=== PATIENT | female | born 1985 | race African-American/Black ===

== ENCOUNTER 2017-09-05 08:29 | Inpatient (IN) | payer MEDICAID ==
[2017-09-05] MEDS ORDERED: INSULIN REG, HUMAN 100 UNIT/ML 3 ML VIAL (PYX) IV ONE (08:46)
[2017-09-05] MEDS ORDERED: NORMAL SALINE 1000 ML 1,000 ML IV PRN ×2 (08:46→16:44)
--- NOTE | 2017-09-05 08:46 | ER Document Report ---
ED Blood Sugar Problem - General Mode of Arrival: Medic Information source: Relative, Emergency Med Personnel - HPI Onset: Yesterday Severity: Severe <ANTONINO LAMA - Last Filed: 09/05/17 08:59> <CHANO SANTOS - Last Filed: 09/05/17 17:00> - General Stated Complaint: BLOOD SUGAR CONCERNS Time Seen by Provider: 09/05/17 08:31 Notes: Patient is a 32-year-old type I diabetic who presents to the emergency department today with complaints of lethargy and elevated BGLs at home. Family at bedside states the patient began having these symptoms yesterday. EMS reports a BGL of 516 on arrival. Daughter at bedside states the patient has been vomiting with her symptoms. History is limited secondary to the patient's lethargy. (ANTONINO LAAM) - Related Data Allergies/Adverse Reactions: No Known Allergies Allergy (Unverified 09/05/17 08:58) Home Medications: Current Home Medications Acetaminophen [Tylenol] 650 mg PO PRN PRN 09/05/17 [History] Insulin Aspart [Novolog Insulin 100 Unit/1 ml 10 ml] 0 unit SUBCUT .SLD SCALE [History] Insulin Glargine,Hum.rec.anlog [Lantus] 5 unit SQ BID 09/05/17 [History] Metformin HCl 1,000 mg PO BID 09/05/17 [History] Pnv No.95/Ferrous Fum/Folic AC [ Formula Tablet] 1 tab PO DAILY [History] Past Medical History - General Information source: Relative Cannot obtain history due to: Other - lethargic - Social History Smoking Status: Unknown if Ever Smoked Frequency of alcohol use: None Drug Abuse: None Lives with: Family Family History: Reviewed & Not Pertinent Endocrine Medical History: Reports: Hx Diabetes Mellitus Type 1 Surgical Hx: Negative <ANTONINO LAMA - Last Filed: 09/05/17 08:59> Review of Systems - Review of Systems -: Yes ROS unobtainable due to patient's medical condition - very lethargic, given by family at bedside Constitutional: See HPI, Other - elevated BGL Gastrointestinal: See HPI, Vomiting <ANTONINO LAMA - Last Filed: 09/05/17 08:59> Physical Exam <ANTONINO LAMA - Last Filed: 09/05/17 08:59> <CHANO SANTOS - Last Filed: 09/05/17 17:00> - Vital signs Vitals: Resp BP Pulse Ox 22 H 155/102 H 100 09/05/17 08:34 09/05/17 08:34 09/05/17 08:34 - Notes Notes: Physical Exam: General: Lethargic, arouses to voice. HEENT: Normocephalic. Atraumatic. PERRL. Extraocular movements intact. Oropharynx clear. Neck: Supple. Non-tender. Respiratory: Kussmaul breathing. Cardiovascular: Tachycardic. Abdominal: Normal Inspection. Non-tender. No distension. Normal Bowel Sounds. Back: Non-tender. No deformity or step off. Extremities: Moves all four extremities. Upper extremities: Normal inspection. Normal ROM. Lower extremities: Normal inspection. No edema. Normal ROM. Neurological: Lethargic, arouses to voice. Psychological: Unable to assess Skin: Warm. Dry. Normal color. (ANTONINO LAMA) Course <ANTONINO LAMA - Last Filed: 09/05/17 08:59> - Laboratory Result Diagrams: 09/05/17 10:33 09/05/17 14:07 - Diagnostic Test Radiology reviewed: Image reviewed, Reports reviewed - X-ray and scans showed distended bladder with no other abnormality. There is a large amount of stool in the left colon. - EKG Interpretation by Pa EKG shows normal: Sinus rhythm, [place], Intervals, QRS Complexes. abnormal: ST-T Waves - Nonspecific lateral T wave abnormalities Rate: Tachycardia - 111 Rhythm: APC's [place]/QRS: Right axis deviation P Waves: LAURITA When compared to previous EKG there are: Previous EKG unavailable - Consults Dr. Soares Time consulted: 15:13 Consulted provider: other - Request do a CT scan to prove there is no perforation or other pathology and abdomen other than the constipation seen on KUB. If CT scan is okay, then he will admit the patient. <CHANO SANTOS - Last Filed: 09/05/17 17:00> - Re-evaluation Re-evalutation: 09/05/17 11:30 Patient has had 2 L of normal saline at this point, is on an insulin drip. She is now beginning to wake up and is able to give a more complete history. She reports she has been having lower abdominal pain with nausea and vomiting since about 3 PM yesterday. She reports her blood sugars were running high yesterday. She goes to [facility] for her medical care. 09/05/17 16:14 The patient urinated before she went to her imaging studies. The images show a quite distended bladder. Yu catheter will be placed to decompress her bladder. (CHANO SANTOS) - Vital Signs Vital signs: Temp Pulse Resp BP Pulse Ox 97.7 F 112 H 22 H 134/78 H 100 09/05/17 15:04 09/05/17 08:49 09/05/17 16:30 09/05/17 16:30 09/05/17 16:30 - Laboratory Laboratory results interpreted by me: 09/05/17 09/05/17 09/05/17 08:37 10:16 10:33 WBC 25.7 H RBC 5.74 H Hgb 17.0 H Hct 55.0 H MCHC 31.0 L RDW 14.8 H Band Neutrophils % 10 H Abs Neuts (Manual) 20.3 H Abs Monocytes (Manual) 1.8 H Sodium Potassium Chloride Carbon Dioxide Glucose POC Glucose 520 H* 502 H* Lactic Acid Urine Protein Urine Glucose (UA) Urine Ketones Urine Blood Ur Leukocyte Esterase 09/05/17 09/05/17 09/05/17 10:33 10:59 12:19 WBC RBC Hgb Hct MCHC RDW Band Neutrophils % Abs Neuts (Manual) Abs Monocytes (Manual) Sodium Potassium Chloride Carbon Dioxide Glucose POC Glucose 398 H Lactic Acid 5.9 H Urine Protein 100 H Urine Glucose (UA) >=500 H Urine Ketones 80 H Urine Blood SMALL H Ur Leukocyte Esterase TRACE H 09/05/17 09/05/17 09/05/17 14:07 14:07 14:25 WBC RBC Hgb Hct MCHC RDW Band Neutrophils % Abs Neuts (Manual) Abs Monocytes (Manual) Sodium 148.9 H Potassium 6.6 H* Chloride 114 H Carbon Dioxide < 5 L* Glucose 363 H POC Glucose 287 H Lactic Acid 3.7 H Urine Protein Urine Glucose (UA) Urine Ketones Urine Blood Ur Leukocyte Esterase 09/05/17 15:52 WBC RBC Hgb Hct MCHC RDW Band Neutrophils % Abs Neuts (Manual) Abs Monocytes (Manual) Sodium Potassium Chloride Carbon Dioxide Glucose POC Glucose 284 H Lactic Acid Urine Protein Urine Glucose (UA) Urine Ketones Urine Blood Ur Leukocyte Esterase Critical Care Note - Critical Care Note Total time excluding time spent on procedures (mins): 45 <CHANO SANTOS - Last Filed: 09/05/17 17:00> Discharge <ANTONINO LAMA - Last Filed: 09/05/17 08:59> - Discharge Admitting Provider: Hospitalist Unit Admitted: I[facility]U <CHANO SANTOS - Last Filed: 09/05/17 17:00> - Discharge Clinical Impression: Dehydration Diabetic ketoacidosis associated with type 1 diabetes mellitus Qualifiers: Diabetes mellitus complication detail: with coma Qualified Code(s): E10.11 - Type 1 diabetes mellitus with ketoacidosis with coma Abdominal pain Qualifiers: Abdominal location: lower abdomen, unspecified Qualified Code(s): R10.30 - Lower abdominal pain, unspecified Constipation Qualifiers: Constipation type: unspecified constipation type Qualified Code(s): K59.00 - Constipation, unspecified Condition: Fair Disposition: ADMITTED INPATIENT Scribe Attestation: 09/05/17 10:09 I personally performed the services described in the documentation, reviewed and edited the documentation which was dictated to the scribe in my presence, and it accurately records my words and actions. (CHANO SANTOS) Scribe Documentation - Scribe Written by Scribe:: Sandrita Tolentino, 09/05/2017 [id number] acting as scribe for :: [place] <ANTONINO LAMA - Last Filed: 09/05/17 08:59>
[2017-09-05 11:13] LABS: MEAN CORPUSCULAR HEMOGLOBIN 29.7 pg (27.0-33.4); MEAN CORPUSCULAR VOLUME 96 fl (80-97); RED BLOOD COUNT 5.74 10^6/uL (3.72-5.28); RED CELL DISTRIBUTION WIDTH 14.8 % (11.5-14.0); WHITE BLOOD COUNT 25.7 10^3/uL (4.0-10.5)
[2017-09-05 11:13] LABS: APPEARANCE,URINE SLIGHTLY-CLOUDY; BILIRUBIN,URINE NEGATIVE (NEGATIVE); GLUCOSE, URINE >=500 mg/dL (NEGATIVE); KETONES,URINE 80 mg/dL (NEGATIVE); LEUKOCYTE ESTERASE,URINE TRACE (NEGATIVE); NITRITE,URINE NEGATIVE (NEGATIVE); PROTEIN,URINE 100 mg/dL (NEGATIVE); URINE SPECIFIC GRAVITY 1.023; UROBILINOGEN,URINE NEGATIVE mg/dL (<2.0)
--- NOTE | 2017-09-05 11:18 | EKG REPORT ---
SEVERITY:- ABNORMAL ECG - SINUS TACHYCARDIA ATRIAL PREMATURE COMPLEX RIGHT ATRIAL ABNORMALITY BORDERLINE RIGHT AXIS DEVIATION NONSPECIFIC T ABNORMALITIES, LATERAL LEADS : Confirmed by: Tania Pierre MD 05-Sep-2017 11:17:36
[2017-09-05 11:35] LABS: BAND NEUTROPHILS % (MANUAL) 10 % (3-5); BASOPHILS % (MANUAL) 0 % (0-2); EOSINOPHILS % (MANUAL) 0 % (0-6); LYMPHOCYTES % (MANUAL) 13 % (13-45); TOTAL CELLS COUNTED 100
[2017-09-05 11:36] LABS: PLATELET CLUMPS PRESENT
[2017-09-05 11:37] LABS: ANISOCYTOSIS SLIGHT; BURR CELLS SLIGHT; POIKILOCYTOSIS 1+
[2017-09-05 11:38] LABS: POLYCHROMASIA SLIGHT; TEAR DROP CELLS SLIGHT; TOXIC VACUOLATION PRESENT
[2017-09-05] MEDS ORDERED: NORMAL SALINE 1000 ML 1,000 ML IV ONE (13:16)
[2017-09-05 14:36] LABS: ALANINE AMINOTRANSFERASE 19 U/L (9-52); ALBUMIN 4.6 g/dL (3.5-5.0); ALKALINE PHOSPHATASE 94 U/L (38-126); ASPARTATE AMINO TRANSFERASE 23 U/L (14-36); BILIRUBIN,DIRECT 0.4 mg/dL (0.0-0.4); BILIRUBIN,TOTAL 0.4 mg/dL (0.2-1.3); BLOOD UREA NITROGEN 15 mg/dL (7-20); CALCIUM 8.8 mg/dL (8.4-10.2); CHLORIDE 114 mmol/L (98-107); CREATININE RESULT 0.83 mg/dL (0.52-1.25); GLUCOSE 363 mg/dL (75-110); MAGNESIUM 2.1 mg/dL (1.6-2.3); SODIUM 148.9 mmol/L (137-145); TOTAL PROTEIN 7.6 g/dL (6.3-8.2)
[2017-09-05 15:00] LABS: CARBON DIOXIDE < 5 mmol/L (22-30); POTASSIUM 6.6 mmol/L (3.6-5.0)
[2017-09-05] MEDS ORDERED: SODIUM BICARBONATE 8.4% INJ 50 MEQ/50 ML DISP.SYRIN IV ONE (15:06)
--- NOTE | 2017-09-05 15:35 | RADIOLOGY REPORT (SQ) ---
EXAM DESCRIPTION: KUB/ABDOMEN (SINGLE VIEW) COMPLETED DATE/TIME: 09/05/2017 3:08 pm REASON FOR STUDY: lower abd pain, DKA COMPARISON: None. NUMBER OF VIEWS: One view. TECHNIQUE: Supine radiographic image of the abdomen acquired. LIMITATIONS: None. FINDINGS: BOWEL GAS PATTERN: Normal bowel gas pattern. No dilated loops. CALCIFICATIONS: No suspicious calcifications. SOFT TISSUES: The liver is prominent in size. HARDWARE: An IUD is present. BONES: No acute fracture. No worrisome bone lesions. OTHER: No other significant finding. IMPRESSION: Prominent liver. Nonspecific abdomen generally. TECHNICAL DOCUMENTATION: JOB ID: [id number] [employer]- All Rights Reserved
--- NOTE | 2017-09-05 15:57 | RADIOLOGY REPORT (SQ) ---
EXAM DESCRIPTION: CT ABD/PELVIS NO ORAL OR IV COMPLETED DATE/TIME: 09/05/2017 3:33 pm REASON FOR STUDY: Lower abdominal pain, fecal impaction, DKA COMPARISON: None. TECHNIQUE: CT scan of the abdomen and pelvis performed without intravenous or oral contrast. Images reviewed with lung, soft tissue, and bone windows. Reconstructed coronal and sagittal MPR images revi ewed. All images stored on PACS. All CT scanners at this facility use dose modulation, iterative reconstruction, and/or weight based d osing when appropriate to reduce radiation dose to as low as reasonably achievable (ALARA). [facility]: Dose Right [facility]: CareDose [facility]: Dose Right [facility]: Teradose 4D [facility]: Smart Dinetouch RADIATION DOSE: Up-to-date CT equipment and radiation dose reduction techniques were employed. CTDIv ol: 5.3 mGy. DLP: 271 mGy-cm.mGy. LIMITATIONS: Absence of oral and intravenous contrast and paucity of intra-abdominal fat limit evalu ation of bowel. FINDINGS: LOWER CHEST: No significant findings. No nodules or infiltrates. NON-CONTRASTED LIVER, SPLEEN, ADRENALS: Evaluation limited by lack of IV contrast. No identified sign ificant masses. PANCREAS: No masses. No peripancreatic inflammatory changes. GALLBLADDER: No identified stones by CT criteria. No inflammatory changes to suggest cholecystitis. RIGHT KIDNEY AND URETER: No suspicious masses. Assessment limited by lack of IV contrast. No signif icant calcifications. No hydronephrosis or hydroureter. LEFT KIDNEY AND URETER: No suspicious masses. Assessment limited by lack of IV contrast. No signifi cant calcifications. No hydronephrosis or hydroureter. AORTA AND RETROPERITONEUM: No aneurysm. No retroperitoneal masses or adenopathy. BOWEL AND PERITONEAL CAVITY: A large amount of fluid is present in the stomach. No obvious masses or inflammatory changes. There is not appear to be significant retained stool. No free fluid. APPENDIX: Normal. PELVIS, BLADDER, AND ABDOMINAL WALL:The urinary bladder is distended. There is an IUD within the [place]. There is no adnexal mass or fluid collection. There is no significant free fluid. BONES: No significant findings. OTHER: No other significant finding. IMPRESSION: NO SIGNIFICANT OR ACUTE PROCESS IN THE ABDOMEN OR PELVIS. COMMENT: Quality ID # [id number]: Final reports with documentation of one or more dose reduction techniques (e.g., Automated exposure control, adjustment of the mA and/or kV according to patient size, use of iterative reconstruction technique) TECHNICAL DOCUMENTATION: JOB ID: [id number] [employer]- All Rights Reserved
[2017-09-05] MEDS ORDERED: ONDANSETRON 4 MG TAB.RAPDIS PO PRN (16:36)
[2017-09-05] MEDS ORDERED: GLUCAGON,HUMAN RECOMB 1 MG INJ IM PRN (16:44)
[2017-09-05] MEDS ORDERED: DEXTROSE 50%-WATER 25 GM/50 ML DISP.SYRIN IV PRN ×2 (16:44)
[2017-09-05] MEDS ORDERED: DEXTROSE 40% GEL 15 GM TUBE PO PRN ×2 (16:44)
[2017-09-05 17:11] LABS: VENOUS BLOOD BASE EXCESS -24.2 mmol/L; VENOUS BLOOD HCO3 6.7 mmol/L (20-32); VENOUS BLOOD PCO2 29.6 mmHg (35-63)
[2017-09-05 17:14] LABS: VENOUS BLOOD PH 6.97 (7.30-7.42)
--- NOTE | 2017-09-05 17:14 | PDOC H&P ---
History of Present Illness Admission Date/PCP: 09/05/2017 Patient complains of: Weakness and not feeling well. History of Present Illness: SCOTT LEIVA is a 32 year old female presents to the emergency room with complaint of not feeling well for the last few days. Patient noticed that she had been going to the restroom more frequently and drinking a lot of fluid. Patient states her blood sugars have been high but she contributed that to what she has been eating. Patient states her children have been sick at home and typically when her children are sick that is when she has problems with controlling her blood sugars. Patient states that she also has been under a lot of stress which tends to cause her blood sugars to run higher. Received call from the emergency room department describing patient's medical condition was reported that patient was in DKA and that insulin and IV fluids have been administered and also was informed of patient's CT of abdomen demonstrating large amount of stool with free fluid. Patient reports that she was told that she was diabetic after having her third child. Patient reports that endocrinology had a hard time determining if she was type I or type II however she states that finally a decision was made that she was type I. Past Medical History Endocrine Medical History: Reports: Diabetes Mellitus Type 1 Social History Lives with: Family Smoking Status: Unknown if Ever Smoked Family History Family History: Reviewed & Not Pertinent Parental Family History Reviewed: Yes Children Family History Reviewed: Yes Sibling(s) Family History Reviewed.: Yes Medication/Allergy Home Medications: Acetaminophen [Tylenol] 650 mg PO PRN PRN 09/05/17 Insulin Aspart [Novolog Insulin 100 Unit/1 ml 10 ml] 0 unit SUBCUT .SLD SCALE Insulin Glargine,Hum.rec.anlog [Lantus] 5 unit SQ BID 09/05/17 Metformin HCl 1,000 mg PO BID 09/05/17 Pnv No.95/Ferrous Fum/Folic AC [ Formula Tablet] 1 tab PO DAILY Allergies/Adverse Reactions: No Known Allergies Allergy (Unverified 09/05/17 08:58) Review of Systems Constitutional: PRESENT: weakness Eyes: ABSENT: visual disturbances Ears: ABSENT: hearing changes Cardiovascular: ABSENT: chest pain, dyspnea on exertion, edema, orthropnea, palpitations Respiratory: ABSENT: cough, hemoptysis Gastrointestinal: PRESENT: constipation Genitourinary: ABSENT: dysuria, hematuria Musculoskeletal: ABSENT: joint swelling Integumentary: ABSENT: rash, wounds Neurological: ABSENT: abnormal gait, abnormal speech, confusion, dizziness, focal weakness, syncope Psychiatric: ABSENT: anxiety, depression, homidical ideation, suicidal ideation Endocrine: PRESENT: polydipsia, polyuria Hematologic/Lymphatic: ABSENT: easy bleeding, easy bruising Physical Exam Vital Signs: Temp Pulse Resp BP Pulse Ox 97.7 F 112 H 22 H 134/78 H 100 09/05/17 15:04 09/05/17 08:49 09/05/17 16:30 09/05/17 16:30 09/05/17 16:30 Intake & Output 09/04/17 09/05/17 09/06/17 06:59 06:59 06:59 Weight 49.895 kg General appearance: PRESENT: no acute distress, thin Head exam: PRESENT: atraumatic, normocephalic Eye exam: PRESENT: conjunctiva pink, EOMI. ABSENT: scleral icterus Ear exam: PRESENT: normal external ear exam Mouth exam: PRESENT: moist, tongue midline Neck exam: ABSENT: carotid bruit, JVD, lymphadenopathy, thyromegaly Respiratory exam: PRESENT: clear to auscultation dannie. ABSENT: rales, rhonchi, wheezes Cardiovascular exam: PRESENT: RRR, tachycardia. ABSENT: diastolic murmur, rubs , systolic murmur Pulses: PRESENT: normal dorsalis pedis pul Vascular exam: PRESENT: normal capillary refill GI/Abdominal exam: PRESENT: normal bowel sounds, soft, tenderness. ABSENT: distended, guarding, mass, organolmegaly, rebound Rectal exam: PRESENT: deferred Extremities exam: PRESENT: full ROM. ABSENT: calf tenderness, clubbing, pedal edema Neurological exam: PRESENT: alert, awake, oriented to person, oriented to place , oriented to time, oriented to situation, CN II-XII grossly intact. ABSENT: motor sensory deficit Psychiatric exam: PRESENT: appropriate affect, normal mood. ABSENT: homicidal ideation, suicidal ideation Skin exam: PRESENT: dry, intact, warm. ABSENT: cyanosis, rash Results Laboratory Results: 09/05/17 10:33 09/05/17 14:07 09/05/17 09/05/17 09/05/17 10:33 10:33 10:33 WBC 25.7 H RBC 5.74 H Hgb 17.0 H Hct 55.0 H MCV 96 MCH 29.7 MCHC 31.0 L RDW 14.8 H Plt Count 304 Seg Neutrophils % Not Reportable Lymphocytes % Not Reportable Monocytes % Not Reportable Eosinophils % Not Reportable Basophils % Not Reportable Absolute Neutrophils Not Reportable Absolute Lymphocytes Not Reportable Absolute Monocytes Not Reportable Absolute Eosinophils Not Reportable Absolute Basophils Not Reportable VBG pH VBG pCO2 VBG HCO3 VBG Base Excess Sodium Cancelled Potassium Cancelled Chloride Cancelled Carbon Dioxide Cancelled Anion Gap Cancelled BUN Cancelled Creatinine Cancelled Est GFR ( Amer) Cancelled Est GFR (Non-Af Amer) Cancelled Glucose Cancelled Lactic Acid 5.9 H Calcium Cancelled Magnesium Cancelled Total Bilirubin Cancelled AST Cancelled ALT Cancelled Alkaline Phosphatase Cancelled Total Protein Cancelled Albumin Cancelled Urine Color Urine Appearance Urine pH Ur Specific [place] Urine Protein Urine Glucose (UA) Urine Ketones Urine Blood Urine Nitrite Ur Leukocyte Esterase Urine WBC (Auto) Urine RBC (Auto) 09/05/17 09/05/17 09/05/17 10:59 11:33 14:05 WBC RBC Hgb Hct MCV MCH MCHC RDW Plt Count Seg Neutrophils % Lymphocytes % Monocytes % Eosinophils % Basophils % Absolute Neutrophils Absolute Lymphocytes Absolute Monocytes Absolute Eosinophils Absolute Basophils VBG pH Cancelled VBG pCO2 Cancelled VBG HCO3 Cancelled VBG Base Excess Cancelled Sodium Cancelled Potassium Cancelled Chloride Cancelled Carbon Dioxide Cancelled Anion Gap Cancelled BUN Cancelled Creatinine Cancelled Est GFR ( Amer) Cancelled Est GFR (Non-Af Amer) Cancelled Glucose Cancelled Lactic Acid Calcium Cancelled Magnesium Cancelled Total Bilirubin Cancelled AST Cancelled ALT Cancelled Alkaline Phosphatase Cancelled Total Protein Cancelled Albumin Cancelled Urine Color STRAW Urine Appearance SLIGHTLY-CLOUDY Urine pH 5.0 Ur Specific [place] 1.023 Urine Protein 100 H Urine Glucose (UA) >=500 H Urine Ketones 80 H Urine Blood SMALL H Urine Nitrite NEGATIVE Ur Leukocyte Esterase TRACE H Urine WBC (Auto) 3 Urine RBC (Auto) 2 09/05/17 09/05/17 14:07 14:07 WBC RBC Hgb Hct MCV MCH MCHC RDW Plt Count Seg Neutrophils % Lymphocytes % Monocytes % Eosinophils % Basophils % Absolute Neutrophils Absolute Lymphocytes Absolute Monocytes Absolute Eosinophils Absolute Basophils VBG pH VBG pCO2 VBG HCO3 VBG Base Excess Sodium 148.9 H Potassium 6.6 H* Chloride 114 H Carbon Dioxide < 5 L* Anion Gap Not Reportable BUN 15 Creatinine 0.83 Est GFR ( Amer) > 60 Est GFR (Non-Af Amer) > 60 Glucose 363 H Lactic Acid 3.7 H Calcium 8.8 Magnesium 2.1 Total Bilirubin 0.4 AST 23 ALT 19 Alkaline Phosphatase 94 Total Protein 7.6 Albumin 4.6 Urine Color Urine Appearance Urine pH Ur Specific [place] Urine Protein Urine Glucose (UA) Urine Ketones Urine Blood Urine Nitrite Ur Leukocyte Esterase Urine WBC (Auto) Urine RBC (Auto) Impressions: KUB X-Ray 09/05/17 14:35 IMPRESSION: Prominent liver. Nonspecific abdomen generally. Abdomen/Pelvis CT 09/05/17 15:15 IMPRESSION: NO SIGNIFICANT OR ACUTE PROCESS IN THE ABDOMEN OR PELVIS. Assessment & Plan - Diagnosis (1) Diabetic ketoacidosis associated with type 1 diabetes mellitus Qualifiers: Diabetes mellitus complication detail: with coma Qualified Code(s): E10.11 - Type 1 diabetes mellitus with ketoacidosis with coma Is this a current diagnosis for this admission?: Yes Plan: Will continue IVF, Insulin, and scheduled labs. Once Blood glucose 250 will switch to D51/2 saline. HBGA1C pending. Will check Blood and Urine Culture. (2) Metabolic acidosis Is this a current diagnosis for this admission?: Yes Plan: Secondary to DKA: Will continue current treatment. (3) Hypernatremia Plan: Secondary to Dehydration: Will continue IVFs. (4) Abdominal pain Qualifiers: Abdominal location: lower abdomen, unspecified Qualified Code(s): R10.30 - Lower abdominal pain, unspecified Plan: Secondary to Constipation: Will write for Soap Ken enema. Will load from the bottom first before loading from the top. (5) Dehydration Is this a current diagnosis for this admission?: Yes Plan: Will continue IVFs. (6) Constipation Qualifiers: Constipation type: unspecified constipation type Qualified Code(s): K59.00 - Constipation, unspecified Is this a current diagnosis for this admission?: Yes Plan: Will load from the bottom first. Pt with large amounts of stool. (7) Leukocytosis Is this a current diagnosis for this admission?: Yes Plan: Blood and Urine Culture pending. (8) Hyperkalemia Is this a current diagnosis for this admission?: Yes Plan: Secondary to Acidosis: Will continue to check BMPs. (9) DVT prophylaxis Is this a current diagnosis for this admission?: Yes Plan: SCDs - Time Time Spent: 30 to 50 Minutes Anticipated discharge: Home
[2017-09-05] MEDS ORDERED: DEXTROSE 5%-1/2 NORMAL SALINE 1,000 ML IV PRN ×2 (17:29→20:02)
[2017-09-05 18:05] LABS: BLOOD UREA NITROGEN 13 mg/dL (7-20); CALCIUM 8.8 mg/dL (8.4-10.2); CHLORIDE 116 mmol/L (98-107); GLUCOSE 289 mg/dL (75-110)
[2017-09-05 18:05] LABS: ARTERIAL BLOOD BASE EXCESS -23.6 mmol/L; ARTERIAL BLOOD O2 SATURATION 97.9 % (94-98)
[2017-09-05 18:30] LABS: CARBON DIOXIDE < 5 mmol/L (22-30); POTASSIUM 6.6 mmol/L (3.6-5.0)
[2017-09-05] MEDS ORDERED: ONDANSETRON HCL INJ/PF 4 MG/2 ML SDV ONE (18:47)
[2017-09-05] MEDS: NORMAL SALINE 100 ML with INSULIN REGULAR, HUMAN 100 UNIT IV PRN ×2 (18:53)
[2017-09-05] MEDS ORDERED: 1/2 NORMAL SALINE 2,000 ML IV ONE (20:05)
[2017-09-05 20:15] LABS: ARTERIAL BLOOD BASE EXCESS -21.6 mmol/L; ARTERIAL BLOOD O2 SATURATION 97.3 % (94-98)
[2017-09-05 20:53] LABS: BLOOD UREA NITROGEN 12 mg/dL (7-20); CALCIUM 9.2 mg/dL (8.4-10.2); CHLORIDE 114 mmol/L (98-107); CREATININE RESULT 0.66 mg/dL (0.52-1.25); GLUCOSE 310 mg/dL (75-110); POTASSIUM 5.9 mmol/L (3.6-5.0); SODIUM 142.7 mmol/L (137-145)
[2017-09-05 21:09] LABS: CARBON DIOXIDE < 5 mmol/L (22-30)
[2017-09-05 22:24] LABS: APPEARANCE,URINE CLEAR; BILIRUBIN,URINE NEGATIVE (NEGATIVE); GLUCOSE, URINE >=500 mg/dL (NEGATIVE); KETONES,URINE 80 mg/dL (NEGATIVE); LEUKOCYTE ESTERASE,URINE NEGATIVE (NEGATIVE); NITRITE,URINE NEGATIVE (NEGATIVE); PROTEIN,URINE NEGATIVE (NEGATIVE); URINE SPECIFIC GRAVITY 1.014; UROBILINOGEN,URINE NEGATIVE mg/dL (<2.0)
[2017-09-06] MEDS: POTASSI CL 20 MEQ/50 ML RIDER 20 MEQ/50 ML RTUPB IV SCH ×2 (02:00→05:40)
[2017-09-06 02:22] LABS: ANION GAP 10 (5-19); BLOOD UREA NITROGEN 6 mg/dL (7-20); CARBON DIOXIDE 12 mmol/L (22-30); CHLORIDE 114 mmol/L (98-107); GLUCOSE 293 mg/dL (75-110); SODIUM 136.1 mmol/L (137-145)
[2017-09-06 02:32] LABS: POTASSIUM 3.4 mmol/L (3.6-5.0)
[2017-09-06] MEDS ORDERED: POTASSI CL 20 MEQ/50 ML RIDER 20 MEQ/50 ML RTUPB IV ONE ×2 (02:53→04:50)
[2017-09-06 06:18] LABS: ABSOLUTE BASOPHILS # (AUTO) 0.1 10^3/uL (0.0-0.2); ABSOLUTE LYMPHOCYTES (AUTO) 1.6 10^3/uL (0.5-4.7); ABSOLUTE MONOCYTES (AUTO) 1.1 10^3/uL (0.1-1.4); ABSOLUTE NEUT (AUTO) 9.7 10^3/uL (1.7-8.2); BASOPHILS % (AUTO) 0.5 % (0-2); EOSINOPHILS % (AUTO) 0.1 % (0-6); HEMATOCRIT 36.4 % (36.0-47.0); HGB HCT DIFFERENCE 0.2; LYMPHOCYTES % (AUTO) 12.8 % (13-45); MEAN CORPUSCULAR HEMOGLOBIN 29.4 pg (27.0-33.4); MEAN CORPUSCULAR HGB CONC 33.5 g/dL (32.0-36.0); MONOCYTES % (AUTO) 8.5 % (3-13); RED BLOOD COUNT 4.14 10^6/uL (3.72-5.28); RED CELL DISTRIBUTION WIDTH 13.6 % (11.5-14.0); SEGMENTED NEUTROPHILS % (AUTO) 78.1 % (42-78); WHITE BLOOD COUNT 12.5 10^3/uL (4.0-10.5)
[2017-09-06 06:27] LABS: ANION GAP 7 (5-19); BLOOD UREA NITROGEN 5 mg/dL (7-20); CALCIUM 7.9 mg/dL (8.4-10.2); CARBON DIOXIDE 13 mmol/L (22-30); CHLORIDE 118 mmol/L (98-107); CHOLESTEROL 173.56 mg/dL (0-200); CREATININE RESULT 0.46 mg/dL (0.52-1.25); Direct HDL 57 mg/dL (>40); GLUCOSE 175 mg/dL (75-110); MAGNESIUM 1.6 mg/dL (1.6-2.3); PHOSPHORUS 0.9 mg/dL (2.5-4.5); POTASSIUM 3.4 mmol/L (3.6-5.0); SODIUM 138.4 mmol/L (137-145); TRIGLYCERIDES 91 mg/dL (<150)
[2017-09-06 06:36] LABS: HEMOGLOBIN 12.2 g/dL (12.0-15.5); MEAN CORPUSCULAR VOLUME 88 fl (80-97)
[2017-09-06 06:38] LABS: DIRECT LDL 97 mg/dL (<100)
[2017-09-06 07:15] LABS: THYROID STIMULATING HORMONE 3.52 uIU/mL (0.47-4.68)
[2017-09-06] MEDS ORDERED: POTASSIUM CHLORIDE 10 MEQ TABLET.SA PO ONE ×2 (07:34→16:00)
[2017-09-06] MEDS ORDERED: POTASSIUM PHOS,M-BASIC-D-BASIC 60 MMOL in NORMAL SALINE 1000 ML 1,000 ML IV ONE (10:00)
[2017-09-06] MEDS: PANTOPRAZOLE SODIUM 40 MG VIAL IV SCH (10:41)
[2017-09-06] MEDS: MAGNESIUM SULFATE/D5W 1 GM/100 ML RTUPB IV SCH ×2 (10:41→11:35)
[2017-09-06] MEDS: DEXTROSE 5%-NORMAL SALINE 1,000 ML IV PRN ×2 (10:49→14:47)
[2017-09-06 11:06] LABS: ANION GAP 8 (5-19); BLOOD UREA NITROGEN 4 mg/dL (7-20); CALCIUM 7.8 mg/dL (8.4-10.2); CARBON DIOXIDE 14 mmol/L (22-30); CHLORIDE 120 mmol/L (98-107); CREATININE RESULT 0.38 mg/dL (0.52-1.25); GLUCOSE 105 mg/dL (75-110); POTASSIUM 3.3 mmol/L (3.6-5.0); SODIUM 142.4 mmol/L (137-145)
[2017-09-06 11:10] LABS: APPEARANCE,URINE SLIGHTLY-CLOUDY; BILIRUBIN,URINE NEGATIVE (NEGATIVE); GLUCOSE, URINE NEGATIVE (NEGATIVE); KETONES,URINE TRACE mg/dL (NEGATIVE); LEUKOCYTE ESTERASE,URINE NEGATIVE (NEGATIVE); NITRITE,URINE NEGATIVE (NEGATIVE); PROTEIN,URINE 30 mg/dL (NEGATIVE); URINE SPECIFIC GRAVITY 1.011; UROBILINOGEN,URINE NEGATIVE mg/dL (<2.0)
[2017-09-06] MEDS: NORMAL SALINE 100 ML with INSULIN REGULAR, HUMAN 100 UNIT IV PRN ×2 (11:35)
--- NOTE | 2017-09-06 13:35 | PDOC PROGRESS REPORT ---
Subjective Progress Note for:: 09/06/17 Subjective:: Pt states that she is feeling better. Pt states that she had a bowel movement yesterday. Physical Exam Vital Signs: Temp Pulse Resp BP Pulse Ox 98.8 F 95 18 106/53 L 100 09/06/17 08:09 09/06/17 08:09 09/06/17 08:09 09/06/17 08:09 09/06/17 08:09 Intake & Output 09/05/17 09/06/17 09/07/17 06:59 06:59 06:59 Intake Total 3490 Output Total 2500 Balance 990 General appearance: PRESENT: no acute distress, thin Head exam: PRESENT: atraumatic, normocephalic Eye exam: PRESENT: conjunctiva pink, EOMI. ABSENT: scleral icterus Ear exam: PRESENT: normal external ear exam Mouth exam: PRESENT: moist, tongue midline Neck exam: ABSENT: carotid bruit, JVD, lymphadenopathy, thyromegaly Respiratory exam: PRESENT: clear to auscultation dannie. ABSENT: rales, rhonchi, wheezes Cardiovascular exam: PRESENT: RRR. ABSENT: diastolic murmur, rubs, systolic murmur Pulses: PRESENT: normal dorsalis pedis pul Vascular exam: PRESENT: normal capillary refill GI/Abdominal exam: PRESENT: normal bowel sounds, soft. ABSENT: distended, guarding, mass, organolmegaly, rebound, tenderness Rectal exam: PRESENT: deferred Extremities exam: PRESENT: full ROM. ABSENT: calf tenderness, clubbing, pedal edema Neurological exam: PRESENT: alert, awake, oriented to person, oriented to place , oriented to time, oriented to situation, CN II-XII grossly intact. ABSENT: motor sensory deficit Psychiatric exam: PRESENT: appropriate affect, normal mood. ABSENT: homicidal ideation, suicidal ideation Skin exam: PRESENT: dry, intact, warm. ABSENT: cyanosis, rash Results Laboratory Results: 09/06/17 05:55 09/06/17 10:17 09/05/17 09/05/17 09/05/17 17:00 17:42 17:55 WBC RBC Hgb Hct MCV MCH MCHC RDW Plt Count Seg Neutrophils % Lymphocytes % Monocytes % Eosinophils % Basophils % Absolute Neutrophils Absolute Lymphocytes Absolute Monocytes Absolute Eosinophils Absolute Basophils Carbonic Acid 0.39 L HCO3/H2CO3 Ratio 10:1 ABG pH 7.09 L* ABG pCO2 13.0 L* ABG pO2 139.5 H ABG HCO3 3.9 L ABG O2 Saturation 97.9 ABG Base Excess -23.6 VBG pH 6.97 L* VBG pCO2 29.6 L VBG HCO3 6.7 L VBG Base Excess -24.2 FiO2 ROOM AIR Sodium 147.0 H Potassium 6.6 H* Chloride 116 H Carbon Dioxide < 5 L* Anion Gap Not Reportable BUN 13 Creatinine 0.70 Est GFR ( Amer) > 60 Est GFR (Non-Af Amer) > 60 Glucose 289 H Calcium 8.8 Phosphorus Magnesium Triglycerides Cholesterol LDL Cholesterol Direct VLDL Cholesterol HDL Cholesterol TSH Free T4 Urine Color Urine Appearance Urine pH Ur Specific [place] Urine Protein Urine Glucose (UA) Urine Ketones Urine Blood Urine Nitrite Ur Leukocyte Esterase Urine WBC (Auto) Urine RBC (Auto) 09/05/17 09/05/17 09/05/17 20:06 20:20 21:55 WBC RBC Hgb Hct MCV MCH MCHC RDW Plt Count Seg Neutrophils % Lymphocytes % Monocytes % Eosinophils % Basophils % Absolute Neutrophils Absolute Lymphocytes Absolute Monocytes Absolute Eosinophils Absolute Basophils Carbonic Acid 0.46 L HCO3/H2CO3 Ratio 11:1 ABG pH 7.14 L* ABG pCO2 15.4 L* ABG pO2 118.9 H ABG HCO3 5.1 L ABG O2 Saturation 97.3 ABG Base Excess -21.6 VBG pH VBG pCO2 VBG HCO3 VBG Base Excess FiO2 21% Sodium 142.7 Potassium 5.9 H Chloride 114 H Carbon Dioxide < 5 L* Anion Gap Not Reportable BUN 12 Creatinine 0.66 Est GFR ( Amer) > 60 Est GFR (Non-Af Amer) > 60 Glucose 310 H Calcium 9.2 Phosphorus Magnesium Triglycerides Cholesterol LDL Cholesterol Direct VLDL Cholesterol HDL Cholesterol TSH Free T4 Urine Color STRAW Urine Appearance CLEAR Urine pH 5.0 Ur Specific [place] 1.014 Urine Protein NEGATIVE Urine Glucose (UA) >=500 H Urine Ketones 80 H Urine Blood SMALL H Urine Nitrite NEGATIVE Ur Leukocyte Esterase NEGATIVE Urine WBC (Auto) 0 Urine RBC (Auto) 0 09/06/17 09/06/17 09/06/17 00:53 02:04 05:55 WBC 12.5 H RBC 4.14 Hgb 12.2 D Hct 36.4 MCV 88 D MCH 29.4 MCHC 33.5 RDW 13.6 Plt Count 185 Seg Neutrophils % 78.1 H Lymphocytes % 12.8 L Monocytes % 8.5 Eosinophils % 0.1 Basophils % 0.5 Absolute Neutrophils 9.7 H Absolute Lymphocytes 1.6 Absolute Monocytes 1.1 Absolute Eosinophils 0.0 Absolute Basophils 0.1 Carbonic Acid HCO3/H2CO3 Ratio ABG pH ABG pCO2 ABG pO2 ABG HCO3 ABG O2 Saturation ABG Base Excess VBG pH VBG pCO2 VBG HCO3 VBG Base Excess FiO2 Sodium Cancelled 136.1 L Potassium Cancelled 3.4 L D Chloride Cancelled 114 H Carbon Dioxide Cancelled 12 L Anion Gap Cancelled 10 BUN Cancelled 6 L Creatinine Cancelled 0.50 L Est GFR ( Amer) Cancelled > 60 Est GFR (Non-Af Amer) Cancelled > 60 Glucose Cancelled 293 H Calcium Cancelled 8.0 L Phosphorus Magnesium Triglycerides Cholesterol LDL Cholesterol Direct VLDL Cholesterol HDL Cholesterol TSH Free T4 Urine Color Urine Appearance Urine pH Ur Specific [place] Urine Protein Urine Glucose (UA) Urine Ketones Urine Blood Urine Nitrite Ur Leukocyte Esterase Urine WBC (Auto) Urine RBC (Auto) 09/06/17 09/06/17 09/06/17 05:55 05:55 10:17 WBC RBC Hgb Hct MCV MCH MCHC RDW Plt Count Seg Neutrophils % Lymphocytes % Monocytes % Eosinophils % Basophils % Absolute Neutrophils Absolute Lymphocytes Absolute Monocytes Absolute Eosinophils Absolute Basophils Carbonic Acid HCO3/H2CO3 Ratio ABG pH ABG pCO2 ABG pO2 ABG HCO3 ABG O2 Saturation ABG Base Excess VBG pH VBG pCO2 VBG HCO3 VBG Base Excess FiO2 Sodium 138.4 142.4 Potassium 3.4 L 3.3 L Chloride 118 H 120 H Carbon Dioxide 13 L 14 L Anion Gap 7 8 BUN 5 L 4 L Creatinine 0.46 L 0.38 L Est GFR ( Amer) > 60 > 60 Est GFR (Non-Af Amer) > 60 > 60 Glucose 175 H 105 Calcium 7.9 L 7.8 L Phosphorus 0.9 L Magnesium 1.6 Triglycerides 91 Cholesterol 173.56 LDL Cholesterol Direct 97 VLDL Cholesterol 18.0 HDL Cholesterol 57 TSH 3.52 Free T4 0.94 Urine Color Urine Appearance Urine pH Ur Specific [place] Urine Protein Urine Glucose (UA) Urine Ketones Urine Blood Urine Nitrite Ur Leukocyte Esterase Urine WBC (Auto) Urine RBC (Auto) 09/06/17 10:40 WBC RBC Hgb Hct MCV MCH MCHC RDW Plt Count Seg Neutrophils % Lymphocytes % Monocytes % Eosinophils % Basophils % Absolute Neutrophils Absolute Lymphocytes Absolute Monocytes Absolute Eosinophils Absolute Basophils Carbonic Acid HCO3/H2CO3 Ratio ABG pH ABG pCO2 ABG pO2 ABG HCO3 ABG O2 Saturation ABG Base Excess VBG pH VBG pCO2 VBG HCO3 VBG Base Excess FiO2 Sodium Potassium Chloride Carbon Dioxide Anion Gap BUN Creatinine Est GFR ( Amer) Est GFR (Non-Af Amer) Glucose Calcium Phosphorus Magnesium Triglycerides Cholesterol LDL Cholesterol Direct VLDL Cholesterol HDL Cholesterol TSH Free T4 Urine Color YELLOW Urine Appearance SLIGHTLY-CLOUDY Urine pH 5.0 Ur Specific [place] 1.011 Urine Protein 30 H Urine Glucose (UA) NEGATIVE Urine Ketones TRACE H Urine Blood SMALL H Urine Nitrite NEGATIVE Ur Leukocyte Esterase NEGATIVE Urine WBC (Auto) 9 Urine RBC (Auto) 2 Impressions: KUB X-Ray 09/05/17 14:35 IMPRESSION: Prominent liver. Nonspecific abdomen generally. Abdomen/Pelvis CT 09/05/17 15:15 IMPRESSION: NO SIGNIFICANT OR ACUTE PROCESS IN THE ABDOMEN OR PELVIS. Assessment & Plan - Diagnosis (1) Diabetic ketoacidosis associated with type 1 diabetes mellitus Qualifiers: Diabetes mellitus complication detail: with coma Qualified Code(s): E10.11 - Type 1 diabetes mellitus with ketoacidosis with coma Is this a current diagnosis for this admission?: Yes Plan: UA demonstrates ketones. Will keep it patient on insulin drip however will advance pt's diet. (2) Metabolic acidosis Is this a current diagnosis for this admission?: Yes Plan: Secondary to DKA: Resolving. UA positive for Ketones. (3) Hypokalemia Is this a current diagnosis for this admission?: Yes Plan: Will give potassium replacement. (4) Bladder dysfunction Is this a current diagnosis for this admission?: Yes Plan: Pt had an distended bladder which could be due to constipation or/and diabetic neuropathy. Will have mata removed to see how well pt is able to urinate on her own. (5) Hypernatremia Is this a current diagnosis for this admission?: Yes Plan: Secondary to Dehydration: Will continue IVF. (6) Hypophosphatemia Is this a current diagnosis for this admission?: Yes Plan: Will give Phosp replacement. Will check Phos level in am. (7) Abdominal pain Qualifiers: Abdominal location: lower abdomen, unspecified Qualified Code(s): R10.30 - Lower abdominal pain, unspecified Is this a current diagnosis for this admission?: Yes Plan: Secondary to DKA, Constipation, and Distended Bladder: Will continue currently treatments. Will give Soap Ken enema. (8) Dehydration Is this a current diagnosis for this admission?: Yes Plan: Will continue IVF (9) Constipation Qualifiers: Constipation type: unspecified constipation type Qualified Code(s): K59.00 - Constipation, unspecified Is this a current diagnosis for this admission?: Yes Plan: Will repeat Soap Suds enema. Will give Magnesium Citrate. (10) Leukocytosis Is this a current diagnosis for this admission?: Yes Plan: Secondary to Stress response: Resolving. (11) Hyperkalemia Is this a current diagnosis for this admission?: Yes Plan: Secondary to DKA: Resolved. (12) DVT prophylaxis Is this a current diagnosis for this admission?: Yes - Time Time Spent with patient: 25-34 minutes Anticipated discharge: Home - Inpatient Certification Medical Necessity: Need For IV Fluids, Risk of Diagnosis Which Will Require Inpatient Eval/Care/Monitoring
[2017-09-06] MEDS ORDERED: MAGNESIUM CITRATE 296 ML BOTTLE PO ONE (14:00)
[2017-09-06 14:26] LABS: ANION GAP 11 (5-19); BLOOD UREA NITROGEN 4 mg/dL (7-20); CALCIUM 7.6 mg/dL (8.4-10.2); CARBON DIOXIDE 13 mmol/L (22-30); CHLORIDE 118 mmol/L (98-107); CREATININE RESULT 0.43 mg/dL (0.52-1.25); GLUCOSE 192 mg/dL (75-110); POTASSIUM 3.5 mmol/L (3.6-5.0); SODIUM 142.1 mmol/L (137-145)
[2017-09-06 17:00] LABS: APPEARANCE,URINE SLIGHTLY-CLOUDY; BILIRUBIN,URINE NEGATIVE (NEGATIVE); GLUCOSE, URINE 150 mg/dL (NEGATIVE); KETONES,URINE NEGATIVE (NEGATIVE); LEUKOCYTE ESTERASE,URINE MODERATE (NEGATIVE); NITRITE,URINE NEGATIVE (NEGATIVE); PROTEIN,URINE NEGATIVE (NEGATIVE); UROBILINOGEN,URINE NEGATIVE mg/dL (<2.0)
[2017-09-06] MEDS ORDERED: DEXTROSE 40% GEL 15 GM TUBE PO PRN ×2 (17:30)
[2017-09-06] MEDS ORDERED: DEXTROSE 50%-WATER 25 GM/50 ML DISP.SYRIN IV PRN ×2 (17:30)
[2017-09-06] MEDS ORDERED: INSULIN REG, HUMAN 100 UNIT/ML 3 ML VIAL (PYX) SUBCUT PRN (17:30)
[2017-09-06] MEDS ORDERED: GLUCAGON,HUMAN RECOMB 1 MG INJ IM PRN (17:30)
[2017-09-06] MEDS ORDERED: INFLUENZA ADLT QUAD (36MOS+) 2017-18 VAC 0.5 ML SYR IM PRN (19:11)
[2017-09-06] MEDS: INSULIN GLARGINE,HUM.REC.ANLOG 1,000 UNIT/10 ML UNIT SUBCUT SCH (22:25)
[2017-09-06] MEDS: ACETAMINOPHEN 325 MG TABLET PO PRN (23:00)
[2017-09-07 06:04] LABS: ABSOLUTE BASOPHILS # (AUTO) 0.1 10^3/uL (0.0-0.2); ABSOLUTE EOSINOPHILS # (AUTO) 0.1 10^3/uL (0.0-0.6); ABSOLUTE LYMPHOCYTES (AUTO) 2.6 10^3/uL (0.5-4.7); ABSOLUTE MONOCYTES (AUTO) 0.5 10^3/uL (0.1-1.4); ABSOLUTE NEUT (AUTO) 4.5 10^3/uL (1.7-8.2); BASOPHILS % (AUTO) 1.3 % (0-2); EOSINOPHILS % (AUTO) 1.3 % (0-6); HEMATOCRIT 33.8 % (36.0-47.0); HEMOGLOBIN 11.5 g/dL (12.0-15.5); HGB HCT DIFFERENCE 0.7; LYMPHOCYTES % (AUTO) 33.1 % (13-45); MEAN CORPUSCULAR HEMOGLOBIN 29.6 pg (27.0-33.4); MEAN CORPUSCULAR HGB CONC 34.1 g/dL (32.0-36.0); MEAN CORPUSCULAR VOLUME 87 fl (80-97); MONOCYTES % (AUTO) 6.3 % (3-13); RED BLOOD COUNT 3.89 10^6/uL (3.72-5.28); RED CELL DISTRIBUTION WIDTH 13.8 % (11.5-14.0); WHITE BLOOD COUNT 7.8 10^3/uL (4.0-10.5)
[2017-09-07 06:16] LABS: ALANINE AMINOTRANSFERASE 20 U/L (9-52); ALBUMIN 2.7 g/dL (3.5-5.0); ALKALINE PHOSPHATASE 59 U/L (38-126); ANION GAP 9 (5-19); ASPARTATE AMINO TRANSFERASE 18 U/L (14-36); BILIRUBIN,DIRECT 0.2 mg/dL (0.0-0.4); BILIRUBIN,TOTAL 0.4 mg/dL (0.2-1.3); BLOOD UREA NITROGEN 4 mg/dL (7-20); CALCIUM 8.1 mg/dL (8.4-10.2); CARBON DIOXIDE 19 mmol/L (22-30); CHLORIDE 111 mmol/L (98-107); GLUCOSE 189 mg/dL (75-110); MAGNESIUM 2.2 mg/dL (1.6-2.3); PHOSPHORUS 1.6 mg/dL (2.5-4.5); POTASSIUM 3.6 mmol/L (3.6-5.0); SODIUM 139.4 mmol/L (137-145)
--- NOTE | 2017-09-07 08:09 | RADIOLOGY REPORT (SQ) ---
EXAM DESCRIPTION: KUB/ABDOMEN (SINGLE VIEW) COMPLETED DATE/TIME: 09/07/2017 7:56 am REASON FOR STUDY: Constipation COMPARISON: 09/05/2017 NUMBER OF VIEWS: One view. TECHNIQUE: Supine radiographic image of the abdomen acquired. LIMITATIONS: None. FINDINGS: BOWEL GAS PATTERN: Normal bowel gas pattern. No dilated loops. CALCIFICATIONS: No suspicious calcifications. SOFT TISSUES: No gross mass or suggestion of organomegaly. HARDWARE: None in the abdomen. BONES: No acute fracture. No worrisome bone lesions. OTHER: Stable position IUD. IMPRESSION: NO RADIOGRAPHIC EVIDENCE FOR ACUTE ABDOMINAL DISEASE. TECHNICAL DOCUMENTATION: JOB ID: [id number] [employer]- All Rights Reserved
[2017-09-07] MEDS: INSULIN LISPRO 100 UNIT/ML 3 ML VIAL SUBCUT SCH ×2 (08:19→12:55)
[2017-09-07] MEDS: ACETAMINOPHEN 325 MG TABLET PO PRN (08:19)
[2017-09-07] MEDS ORDERED: POTASSIUM PHOS,M-BASIC-D-BASIC 60 MMOL in NORMAL SALINE 1000 ML 1,000 ML IV PRN (10:00)
[2017-09-07] MEDS: PANTOPRAZOLE SODIUM 40 MG VIAL IV SCH (10:05)
[2017-09-07] MEDS: INSULIN GLARGINE,HUM.REC.ANLOG 1,000 UNIT/10 ML UNIT SUBCUT SCH (10:05)
[2017-09-07 13:17] VITALS: BP 119/71
--- NOTE | 2017-09-07 13:27 | PDOC DISCHARGE SUMMARY ---
General - Admit/Disc Date/PCP Admission Date/Primary Care Provider: 09/05/17 16:37 Discharge Date: 09/07/17 - Discharge Diagnosis (1) Diabetic ketoacidosis associated with type 1 diabetes mellitus Is this a current diagnosis for this admission?: Yes Summary: Pt was admitted for DKA. Pt hemoglobin A1C was 13.5. Pt was placed on insulin drip and IVFs. Pt acidosis resolved and pt was placed on SC insulin. Pt blood glucose has been under good control. (2) Metabolic acidosis Is this a current diagnosis for this admission?: Yes Summary: Secondary to DKA: Resolved. (3) Hypokalemia Is this a current diagnosis for this admission?: Yes Summary: Pt given potassium replacement. Resolved. (4) Bladder dysfunction Is this a current diagnosis for this admission?: Yes Summary: Secondary to Constipation and Possible Bladder dysfunction secondary DM: Resolved. Will have pt follow up with Urology. (5) Hypernatremia Is this a current diagnosis for this admission?: Yes Summary: Resolved. (6) Hypophosphatemia Is this a current diagnosis for this admission?: Yes Summary: Pt given additional phosp replacement. Resolved. (7) Abdominal pain Is this a current diagnosis for this admission?: Yes Summary: Secondary to DKA and constipation with Distended bladder: Resolved. (8) Dehydration Is this a current diagnosis for this admission?: Yes Summary: Pt was given IVFs for volume expansion. Resolved (9) Constipation Is this a current diagnosis for this admission?: Yes Summary: Pt was given enema twice and Magnesium Citrate. Resolved. (10) Leukocytosis Is this a current diagnosis for this admission?: Yes Summary: Secondary to Stress response: Resolved (11) Hyperkalemia Is this a current diagnosis for this admission?: Yes Summary: Secondary to DKA: Resolved with IVF and Insulin. - Additional Information Resuscitation Status: Full Code Discharge Diet: Diabetic Discharge Activity: Activity As Tolerated Home Medications: Acetaminophen [Tylenol] 650 mg PO Q6HP PRN 09/05/17 Pnv No.95/Ferrous Fum/Folic AC [ Formula Tablet] 1 tab PO DAILY Insulin Glargine,Hum.rec.anlog [Lantus] 20 unit SQ BID #1 vial 09/07/17 Insulin Lispro [Humalog Insulin (Lispro) 100 unit/mL] 3 unit SUBCUT AC #1 vial 09/07/17 History of Present Illness Patient complains of: Weakness and Elevated Blood glucose History of Present Illness: SCOTT LEIVA is a 32 year old female presents to the emergency room with complaint of not feeling well for the last few days. Patient noticed that she had been going to the restroom more frequently and drinking a lot of fluid. Patient states her blood sugars have been high but she contributed that to what she has been eating. Patient states her children have been sick at home and typically when her children are sick that is when she has problems with controlling her blood sugars. Patient states that she also has been under a lot of stress which tends to cause her blood sugars to run higher. Received call from the emergency room department describing patient's medical condition was reported that patient was in DKA and that insulin and IV fluids have been administered and also was informed of patient's CT of abdomen demonstrating large amount of stool with free fluid. Patient reports that she was told that she was diabetic after having her third child. Patient reports that endocrinology had a hard time determining if she was type I or type II however she states that finally a decision was made that she was type I. Hospital Course Hospital Course: Patient is a 32-year-old female that presented to our facility due to complaint of not feeling well and high blood glucose. When patient was seen in the emergency room she is found to be in DKA. Patient states that her children have been sick at home and this may explain why she is in DKA. She was also noted to be constipated which patient states is a chronic problem for her. Patient was admitted to the hospital placed on insulin given IV fluids, patient' s acidosis resolved. Patient was switched to subcu insulin and has done well on regimen. Patient was noted to be constipated therefore patient was given 2 soapsuds enema followed by mag citrate which has resulted in multiple bowel movements. Patient was noted to have urinary retention therefore Yu was anchored. Yu was removed yesterday and patient has been able to void without any issues. Recommend the patient follow with urology given patient history of difficulty urinating. Explained to patient that this could have been a result of her being constipated versus complication of diabetes. Physical Exam Vital Signs: Temp Pulse Resp BP Pulse Ox 97.9 F 87 16 122/78 100 09/07/17 07:23 09/07/17 07:23 09/07/17 07:23 09/07/17 07:23 09/07/17 07:23 Intake & Output 09/06/17 09/07/17 09/08/17 06:59 06:59 06:59 Intake Total 3490 5551 Output Total 2500 740 Balance 990 4811 Weight 64.8 kg General appearance: PRESENT: no acute distress, thin Head exam: PRESENT: atraumatic, normocephalic Eye exam: PRESENT: conjunctiva pink, EOMI. ABSENT: scleral icterus Ear exam: PRESENT: normal external ear exam Mouth exam: PRESENT: moist, tongue midline Neck exam: ABSENT: carotid bruit, JVD, lymphadenopathy, thyromegaly Respiratory exam: PRESENT: clear to auscultation dannie. ABSENT: rales, rhonchi, wheezes Cardiovascular exam: PRESENT: RRR. ABSENT: diastolic murmur, rubs, systolic murmur Pulses: PRESENT: normal dorsalis pedis pul Vascular exam: PRESENT: normal capillary refill GI/Abdominal exam: PRESENT: normal bowel sounds, soft. ABSENT: distended, guarding, mass, organolmegaly, rebound, tenderness Rectal exam: PRESENT: deferred Extremities exam: PRESENT: full ROM. ABSENT: calf tenderness, clubbing, pedal edema Neurological exam: PRESENT: alert, awake, oriented to person, oriented to place , oriented to time, oriented to situation, CN II-XII grossly intact. ABSENT: motor sensory deficit Psychiatric exam: PRESENT: appropriate affect, normal mood. ABSENT: homicidal ideation, suicidal ideation Skin exam: PRESENT: dry, intact, warm. ABSENT: cyanosis, rash Results Laboratory Results: 09/07/17 05:18 09/07/17 05:18 09/06/17 09/06/17 09/06/17 13:20 13:20 16:28 WBC RBC Hgb Hct MCV MCH MCHC RDW Plt Count Seg Neutrophils % Lymphocytes % Monocytes % Eosinophils % Basophils % Absolute Neutrophils Absolute Lymphocytes Absolute Monocytes Absolute Eosinophils Absolute Basophils Sodium 142.1 Potassium 3.5 L Cancelled Chloride 118 H Carbon Dioxide 13 L Anion Gap 11 BUN 4 L Creatinine 0.43 L Est GFR ( Amer) > 60 Est GFR (Non-Af Amer) > 60 Glucose 192 H Calcium 7.6 L Phosphorus Magnesium Total Bilirubin AST ALT Alkaline Phosphatase Total Protein Albumin Urine Color YELLOW Urine Appearance SLIGHTLY-CLOUDY Urine pH 5.0 Ur Specific [place] 1.010 Urine Protein NEGATIVE Urine Glucose (UA) 150 H Urine Ketones NEGATIVE Urine Blood SMALL H Urine Nitrite NEGATIVE Ur Leukocyte Esterase MODERATE H Urine WBC (Auto) 21 Urine RBC (Auto) 4 09/07/17 09/07/17 05:18 05:18 WBC 7.8 RBC 3.89 Hgb 11.5 L Hct 33.8 L MCV 87 MCH 29.6 MCHC 34.1 RDW 13.8 Plt Count 159 Seg Neutrophils % 58.0 Lymphocytes % 33.1 Monocytes % 6.3 Eosinophils % 1.3 Basophils % 1.3 Absolute Neutrophils 4.5 Absolute Lymphocytes 2.6 Absolute Monocytes 0.5 Absolute Eosinophils 0.1 Absolute Basophils 0.1 Sodium 139.4 Potassium 3.6 Chloride 111 H Carbon Dioxide 19 L Anion Gap 9 BUN 4 L Creatinine 0.40 L Est GFR ( Amer) > 60 Est GFR (Non-Af Amer) > 60 Glucose 189 H Calcium 8.1 L Phosphorus 1.6 L Magnesium 2.2 Total Bilirubin 0.4 AST 18 ALT 20 Alkaline Phosphatase 59 Total Protein 5.0 L Albumin 2.7 L Urine Color Urine Appearance Urine pH Ur Specific [place] Urine Protein Urine Glucose (UA) Urine Ketones Urine Blood Urine Nitrite Ur Leukocyte Esterase Urine WBC (Auto) Urine RBC (Auto) Impressions: Abdomen/Pelvis CT 09/05/17 15:15 IMPRESSION: NO SIGNIFICANT OR ACUTE PROCESS IN THE ABDOMEN OR PELVIS. KUB X-Ray 09/07/17 00:00 IMPRESSION: NO RADIOGRAPHIC EVIDENCE FOR ACUTE ABDOMINAL DISEASE. Plan Time Spent: Greater than 30 Minutes
[2017-09-07] MEDS ORDERED: INSULIN GLARGINE,HUM.REC.ANLOG 1,000 UNIT/10 ML UNIT SUBCUT SCH (22:00)
== END 2017-09-07 13:43 | disposition home or self-care (01) | DRG 638 ==
LOC: ER 08:29 → EH 16:37 → UNDOADMIN 17:13 → EH 17:13 → 3S 19:13
DX: E10.10 Type 1 diabetes mellitus with ketoacidosis without coma (principal); E87.0 Hyperosmolality and hypernatremia; E86.0 Dehydration; E87.5 Hyperkalemia; K59.00 Constipation, unspecified; N31.9 Neuromuscular dysfunction of bladder, unspecified; D72.829 Elevated white blood cell count, unspecified; E83.39 Other disorders of phosphorus metabolism; Z79.4 Long term (current) use of insulin
CPT/HCPCS: 36415; 36600; 51702; 74000; 74176; 80048; 80053; 80061; 81001; 81025; 82803; 82962; 83036; 83605; 83735; 84100; 84439; 84443; 85025; 87040; 87086; 90686; 93005; 93010; 96360; 96361; 99291; J1815; J2405; J3475; J3480; J3490; J7030; S0164

== ENCOUNTER 2017-12-15 15:45 | Observation (INO) | payer MEDICAID ==
[2017-12-15] MEDS ORDERED: NORMAL SALINE 1000 ML 1,000 ML IV ONE ×3 (16:31→18:16)
[2017-12-15] MEDS ORDERED: ONDANSETRON HCL INJ/PF 4 MG/2 ML SDV IV ONE (16:31)
[2017-12-15] MEDS ORDERED: MORPHINE SULFATE 10 MG/ML INJ IV ONE (16:32)
--- NOTE | 2017-12-15 16:32 | ER Document Report ---
ED Medical Screen (RME) - General Chief Complaint: High Blood Sugar Stated Complaint: VOMITING Time Seen by Provider: 12/15/17 16:31 Notes: Patient complains of elevated blood sugars with abdominal cramping and vomiting today. TRAVEL OUTSIDE OF THE [place] IN LAST 30 DAYS: No - Related Data Allergies/Adverse Reactions: No Known Allergies Allergy (Unverified 09/05/17 08:58) Past Medical History Endocrine Medical History: Reports: Hx Diabetes Mellitus Type 1 Renal/ Medical History: Denies: Hx Peritoneal Dialysis - Immunizations History of Influenza Vaccine for 08/2017 - 01/2018 Season: No Influenza Administration Date for 08/2017 - 01/2018 Season: 05/01/17 Physical Exam - Vital signs Vitals: Temp Pulse Resp BP Pulse Ox 97.3 F 68 18 114/68 100 12/15/17 15:45 12/15/17 15:45 12/15/17 15:45 12/15/17 15:45 12/15/17 15:45 Course - Vital Signs Vital signs: Temp Pulse Resp BP Pulse Ox 97.3 F 68 18 114/68 100 12/15/17 15:45 12/15/17 15:45 12/15/17 15:45 12/15/17 15:45 12/15/17 15:45 - Laboratory Laboratory results interpreted by me: 12/15/17 15:59 POC Glucose 278 H
[2017-12-15 17:07] LABS: ABSOLUTE BASOPHILS # (AUTO) 0.1 10^3/uL (0.0-0.2); ABSOLUTE MONOCYTES (AUTO) 0.4 10^3/uL (0.1-1.4); ABSOLUTE NEUT (AUTO) 15.6 10^3/uL (1.7-8.2); BASOPHILS % (AUTO) 0.5 % (0-2); EOSINOPHILS % (AUTO) 0.1 % (0-6); HEMATOCRIT 48.1 % (36.0-47.0); HEMOGLOBIN 15.4 g/dL (12.0-15.5); LYMPHOCYTES % (AUTO) 10.8 % (13-45); MEAN CORPUSCULAR VOLUME 91 fl (80-97); MONOCYTES % (AUTO) 2.4 % (3-13); PLATELET COUNT 336 10^3/uL (150-450); RED CELL DISTRIBUTION WIDTH 13.5 % (11.5-14.0); SEGMENTED NEUTROPHILS % (AUTO) 86.2 % (42-78); TOTAL CELLS COUNTED % (AUTO) 100 %; WHITE BLOOD COUNT 18.1 10^3/uL (4.0-10.5)
[2017-12-15 17:13] LABS: APPEARANCE,URINE CLEAR; BILIRUBIN,URINE NEGATIVE (NEGATIVE); COLOR,URINE STRAW; GLUCOSE, URINE >=500 mg/dL (NEGATIVE); KETONES,URINE 80 mg/dL (NEGATIVE); LEUKOCYTE ESTERASE,URINE NEGATIVE (NEGATIVE); NITRITE,URINE NEGATIVE (NEGATIVE); PROTEIN,URINE 30 mg/dL (NEGATIVE); URINE SPECIFIC GRAVITY 1.015; UROBILINOGEN,URINE NEGATIVE mg/dL (<2.0)
[2017-12-15 17:32] LABS: ALANINE AMINOTRANSFERASE 22 U/L (9-52); ALBUMIN 5.3 g/dL (3.5-5.0); ALKALINE PHOSPHATASE 68 U/L (38-126); ASPARTATE AMINO TRANSFERASE 18 U/L (14-36); BILIRUBIN,DIRECT 0.4 mg/dL (0.0-0.4); BILIRUBIN,TOTAL 0.5 mg/dL (0.2-1.3); BLOOD UREA NITROGEN 13 mg/dL (7-20); CALCIUM 10.6 mg/dL (8.4-10.2); GLUCOSE 312 mg/dL (75-110); LIPASE 48.6 U/L (23-300); POTASSIUM 5.9 mmol/L (3.6-5.0); TOTAL PROTEIN 8.6 g/dL (6.3-8.2)
[2017-12-15 17:49] LABS: CHLORIDE 106 mmol/L (98-107); SODIUM 142.9 mmol/L (137-145)
[2017-12-15 17:50] LABS: ANION GAP 30 (5-19)
[2017-12-15 17:56] LABS: CARBON DIOXIDE 7 mmol/L (22-30)
--- NOTE | 2017-12-15 18:16 | ER Document Report ---
ED Blood Sugar Problem - General Chief Complaint: High Blood Sugar Stated Complaint: VOMITING Time Seen by Provider: 12/15/17 16:31 Mode of Arrival: Ambulatory Information source: Patient, Friend TRAVEL OUTSIDE OF THE [place] IN LAST 30 DAYS: No - HPI Notes: 32-year-old lady with past medical history of diabetes type 2 who is insulin- dependent presented today for evaluation of nausea, vomiting as well as dizziness. All of her symptoms started last night. Patient was unable to keep her sugar under control given her persistent nausea and vomiting. Patient denies any fevers, chills, chest pain or shortness of breath. No vaginal bleeding or discharge. Abdominal pain is crampy, generalized, no significant radiation, severity of symptoms is 6 out of 10. Patient typically takes glargine as well as lispro for management of her diabetes. Patient noted to have acidosis in triage. - Related Data Allergies/Adverse Reactions: No Known Allergies Allergy (Unverified 09/05/17 08:58) Past Medical History - General Information source: Patient - Social History Smoking Status: Never Smoker Chew tobacco use (# tins/day): No Frequency of alcohol use: None Drug Abuse: None Family History: Reviewed & Not Pertinent Patient has suicidal ideation: No Patient has homicidal ideation: No - Past Medical History Cardiac Medical History: Reports: None Pulmonary Medical History: Reports: None Endocrine Medical History: Reports: Hx Diabetes Mellitus Type 2 Renal/ Medical History: Denies: Hx Peritoneal Dialysis Review of Systems - Review of Systems Notes: REVIEW OF SYSTEMS: CONSTITUTIONAL: -fevers, -chills, + dizziness EENT: -eye pain, -difficulty swallowing, -nasal congestion CARDIOVASCULAR: -chest pain, -syncope. RESPIRATORY: -cough, -SOB GASTROINTESTINAL: + Abdominal pain, + nausea, + vomiting, -diarrhea GENITOURINARY: -dysuria, -hematuria MUSCULOSKELETAL: -back pain, -neck pain SKIN: -rash or skin lesions. HEMATOLOGIC: -easy bruising or bleeding. LYMPHATIC: -swollen, enlarged glands. NEUROLOGICAL: -altered mental status or loss of consciousness, -headache, - neurologic symptoms PSYCHIATRIC: -anxiety, -depression. ALL OTHER SYSTEMS REVIEWED AND NEGATIVE. Physical Exam - Vital signs Vitals: Temp Pulse Resp BP Pulse Ox 97.3 F 68 18 114/68 100 12/15/17 15:45 12/15/17 15:45 12/15/17 15:45 12/15/17 15:45 12/15/17 15:45 - Notes Notes: Reviewed vital signs and nursing note as charted by RN. CONSTITUTIONAL: Alert and oriented and responds appropriately to questions HEAD: Normocephalic; atraumatic EYES: PERRL; Conjunctivae clear, sclerae non-icteric ENT: normal nose; no rhinorrhea; dry is mucous membranes; pharynx without lesions noted NECK: Supple without meningismus; non-tender; no cervical lymphadenopathy, no masses CARD: Regular rate and rhythm; no murmurs, no clicks, no rubs, no gallops; symmetric distal pulses RESP: Normal chest excursion without splinting or tachypnea; breath sounds clear and equal bilaterally ABD/GI: Normal bowel sounds; non-distended; soft, generalized tenderness to palpation 1 BACK: The back appears normal and is non-tender to palpation EXT: Normal ROM in all joints; non-tender to palpation; no cyanosis, no effusions, no edema SKIN: Normal color for age and race; warm; dry; good turgor; capillary refill < 2 seconds; no acute lesions noted NEURO: .Cranial nerves 3-12 intact. Motor strength 5/5 bilaterally. Sensation intact to touch bilaterally. No pronator drift. Finger to nose intact bilaterally PSYCH: The patient's mood and manner are appropriate. Grooming and personal hygiene are appropriate. Course - Re-evaluation Re-evalutation: 12/15/17 18:34 32-year-old with history of diabetes here with nausea, vomiting as well as dehydration and abdominal pain Differential diagnosis includes DKA, hyperglycemia, dehydration, electrolyte abnormalities, intra-abdominal infection, acute cystitis Patient does not have any upper respiratory symptoms or cough, therefore no suspicion for pneumonia We will obtain basic lab work including CBC, BMP, VBG, beta-hydroxybutyrate level, urinalysis, urine We will start patient on IV fluids as well as IV insulin drip Patient has normal potassium therefore no replacement needed at present time We will continue with hourly Accu-Cheks as well as BMP every [address] scan of her abdomen and pelvis with contrast given the patient has leukocytosis as well as abdominal pain today Reassess patient 12/15/17 23:21 Reassessment 11:20 PM Repeat chemistry is with persistent acidosis, bicarb is improving, one from 4 to 8 Glucose is dropping now, will start patient on D5 0.45%, still has anion gap Will admit to hospitalist service, discussed the case with Dr. Neves, agree with admission Will add on salicylate level - Vital Signs Vital signs: Temp Pulse Resp BP Pulse Ox 97.3 F 68 18 114/68 100 12/15/17 15:45 12/15/17 15:45 12/15/17 15:45 12/15/17 15:45 12/15/17 15:45 - Laboratory Result Diagrams: 12/15/17 17:00 12/15/17 22:13 Laboratory results interpreted by me: 12/15/17 12/15/17 12/15/17 15:59 17:00 17:00 WBC 18.1 H RBC 5.30 H Hct 48.1 H Seg Neutrophils % 86.2 H Lymphocytes % 10.8 L Monocytes % 2.4 L Absolute Neutrophils 15.6 H VBG pH VBG pCO2 VBG HCO3 Sodium Potassium 5.9 H Chloride Carbon Dioxide 7 L* Anion Gap 30 H Glucose 312 H POC Glucose 278 H Calcium 10.6 H Total Protein 8.6 H Albumin 5.3 H Urine Protein Urine Glucose (UA) Urine Ketones 12/15/17 12/15/17 12/15/17 17:00 18:09 18:31 WBC RBC Hct Seg Neutrophils % Lymphocytes % Monocytes % Absolute Neutrophils VBG pH 6.95 L* VBG pCO2 30.4 L VBG HCO3 6.5 L Sodium Potassium Chloride Carbon Dioxide Anion Gap Glucose POC Glucose 271 H Calcium Total Protein Albumin Urine Protein 30 H Urine Glucose (UA) >=500 H Urine Ketones 80 H 12/15/17 12/15/17 20:58 22:13 WBC RBC Hct Seg Neutrophils % Lymphocytes % Monocytes % Absolute Neutrophils VBG pH VBG pCO2 VBG HCO3 Sodium 145.8 H Potassium 5.4 H Chloride 115 H Carbon Dioxide 8 L* Anion Gap 23 H Glucose 169 H POC Glucose 227 H Calcium Total Protein Albumin Urine Protein Urine Glucose (UA) Urine Ketones - Diagnostic Test Radiology reviewed: Image reviewed - IMPRESSION: MILD RIGHT HYDRONEPHROSIS WITH SLIGHTLY DELAYED EXCRETION OF CONTRAST. NO OBSTRUCTING MASS OR STONE IDENTIFIED. FINDINGS COULD BE SECONDARY TO A NONVISUALIZED OR PASSED URINARY TRACT CALCULUS OR POSSIBLY PYELONEPHRITIS. CORRELATE WITH URINALYSIS AND RIGHT FLANK PAIN. OTHERWISE UNREMARKABLE CONTRAST-ENHANCED CT OF THE ABDOMEN AND PELVIS. Critical Care Note - Critical Care Note Total time excluding time spent on procedures (mins): 35 Comments: Critical Care Time: 35 minutes Critical care provider statement: Critical care time was exclusive of: Separately billable procedures and treating other patients and teaching time Critical care was time spent personally by me on the following activities: Blood draw for specimens, development of treatment plan with patient or surrogate, evaluation of patient's response to treatment, examination of patient , obtaining history from patient or surrogate, ordering and performing treatments and interventions, ordering and review of laboratory studies, ordering and review of radiographic studies, pulse oximetry, re-evaluation of patient's condition and review of old charts I assumed direction of critical care for this patient from another provider in my specialty: no Discharge - Discharge Clinical Impression: Metabolic acidosis, Hyperkalemia, Dehydration Diabetic ketoacidosis associated with type 1 diabetes mellitus Qualifiers: Diabetes mellitus complication detail: with coma Qualified Code(s): E10.11 - Type 1 diabetes mellitus with ketoacidosis with coma Condition: Stable Disposition: ADMITTED INPATIENT Admitting Provider: Hospitalist Unit Admitted: HARSHAD
[2017-12-15] MEDS ORDERED: INSULIN REG, HUMAN 100 UNIT/ML 3 ML VIAL (PYX) IV ONE (18:19)
[2017-12-15 18:46] LABS: VENOUS BLOOD BASE EXCESS -24.8 mmol/L; VENOUS BLOOD HCO3 6.5 mmol/L (20-32); VENOUS BLOOD PCO2 30.4 mmHg (35-63)
[2017-12-15 18:57] LABS: VENOUS BLOOD PH 6.95 (7.30-7.42)
--- NOTE | 2017-12-15 19:24 | RADIOLOGY REPORT (SQ) ---
EXAM DESCRIPTION: CT ABD/PELVIS WITH IV ONLY COMPLETED DATE/TIME: 12/15/2017 7:07 pm REASON FOR STUDY: abdominal pain, vomiting COMPARISON: 07/16/2017 TECHNIQUE: CT scan of the abdomen and pelvis performed using helical scanning technique with dynamic intravenous contrast injection. No oral contrast. Images reviewed with lung, soft tissue, and bone windows. Reconstructed coronal and sagittal MPR images reviewed. Delayed images for evaluation of the urinary system also acquired. All images stored on PACS. All CT scanners at this facility use dose modulation, iterative reconstruction, and/or weight based d osing when appropriate to reduce radiation dose to as low as reasonably achievable (ALARA). [facility]: Dose Right [facility]: CareDose [facility]: Dose Right [facility]: Teradose 4D [facility]: [employer] CONTRAST TYPE AND DOSE: contrast/concentration: Isovue 370.00 mg/ml; Total Contrast Delivered: 61.0 ml; Total Saline Delivered: 43.0 ml RENAL FUNCTION: None required. The patient is less than 50 years old. RADIATION DOSE: CT Rad equipment meets quality standard of care and radiation dose reduction techniq ues were employed. CTDIvol: 4.9 - 5.5 mGy. DLP: 521 mGy-cm.. LIMITATIONS: None. FINDINGS: LOWER CHEST: No significant findings. No nodules or infiltrates. LIVER: Normal size. No masses. No dilated ducts. SPLEEN: Normal size. No focal lesions. PANCREAS: No masses. No significant calcifications. No adjacent inflammation or peripancreatic fluid collections. Pancreatic duct not dilated. GALLBLADDER: No identified stones by CT criteria. No inflammatory changes to suggest cholecystitis. ADRENAL GLANDS: No significant masses or asymmetry. RIGHT KIDNEY AND URETER: No solid masses. No significant calcifications. Mild right hydronephrosi s with delayed excretion of contrast. LEFT KIDNEY AND URETER: No solid masses. No significant calcifications. No hydronephrosis or hydr oureter. AORTA AND VESSELS: No aneurysm. No dissection. Renal arteries, SMA, celiac without stenosis. RETROPERITONEUM: No retroperitoneal adenopathy, hemorrhage or masses. BOWEL AND PERITONEAL CAVITY: No masses or inflammatory changes. No free fluid or peritoneal masses. APPENDIX: Normal. PELVIS: No mass. No free fluid. Normal bladder. ABDOMINAL WALL: No masses. No hernias. BONES: No significant or acute findings. OTHER: No other significant finding. IMPRESSION: MILD RIGHT HYDRONEPHROSIS WITH SLIGHTLY DELAYED EXCRETION OF CONTRAST. NO OBSTRUCTING M ASS OR STONE IDENTIFIED. FINDINGS COULD BE SECONDARY TO A NONVISUALIZED OR PASSED URINARY TRACT CALC ULUS OR POSSIBLY PYELONEPHRITIS. CORRELATE WITH URINALYSIS AND RIGHT FLANK PAIN. OTHERWISE UNREMARKABLE CONTRAST-ENHANCED CT OF THE ABDOMEN AND PELVIS. TECHNICAL DOCUMENTATION: JOB ID: [id number] Quality ID # [id number]: Final reports with documentation of one or more dose reduction techniques (e.g., Au tomated exposure control, adjustment of the mA and/or kV according to patient size, use of iterative reconstruction technique) 2010 [employer]- All Rights Reserved
[2017-12-15 22:45] LABS: BLOOD UREA NITROGEN 11 mg/dL (7-20); CALCIUM 9.3 mg/dL (8.4-10.2); GLUCOSE 169 mg/dL (75-110)
[2017-12-15 22:59] LABS: ANION GAP 23 (5-19); CHLORIDE 115 mmol/L (98-107); POTASSIUM 5.4 mmol/L (3.6-5.0)
[2017-12-15 23:00] LABS: SODIUM 145.8 mmol/L (137-145)
[2017-12-15 23:03] LABS: CARBON DIOXIDE 8 mmol/L (22-30)
[2017-12-15] MEDS ORDERED: DEXTROSE 5%-NORMAL SALINE 1,000 ML IV ONE (23:18)
[2017-12-15] MEDS ORDERED: DEXTROSE 50%-WATER 25 GM/50 ML DISP.SYRIN IV PRN ×2 (23:27)
[2017-12-15] MEDS ORDERED: NORMAL SALINE 100 ML with INSULIN REGULAR, HUMAN 100 UNIT IV PRN ×2 (23:27)
[2017-12-15] MEDS ORDERED: GLUCAGON,HUMAN RECOMB 1 MG INJ IM PRN (23:27)
[2017-12-15] MEDS ORDERED: DEXTROSE 40% GEL 15 GM TUBE PO PRN ×2 (23:27)
[2017-12-15] MEDS ORDERED: DEXTROSE 5%-1/2 NORMAL SALINE 1,000 ML IV ONE (23:27)
[2017-12-15] MEDS ORDERED: SODIUM BICARBONATE 8.4% INJ 50 MEQ/50 ML DISP.SYRIN IV ONE (23:28)
[2017-12-16] MEDS ORDERED: ACETAMINOPHEN 325 MG TABLET PO PRN (01:24)
[2017-12-16] MEDS ORDERED: ONDANSETRON HCL INJ/PF 4 MG/2 ML SDV IV PRN (01:24)
[2017-12-16] MEDS ORDERED: DEXTROSE 40% GEL 15 GM TUBE PO PRN ×4 (01:24→10:22)
[2017-12-16] MEDS ORDERED: OXYCODONE-ACETAMINOPHEN 5-325 MG TABLET PO PRN (01:24)
[2017-12-16] MEDS ORDERED: GLUCAGON,HUMAN RECOMB 1 MG INJ SUBCUT PRN (01:24)
[2017-12-16] MEDS ORDERED: DEXTROSE 50%-WATER 25 GM/50 ML DISP.SYRIN IV PRN ×4 (01:24→10:22)
[2017-12-16 02:48] LABS: ANION GAP 12 (5-19); BLOOD UREA NITROGEN 9 mg/dL (7-20); CALCIUM 8.4 mg/dL (8.4-10.2); CARBON DIOXIDE 13 mmol/L (22-30); CHLORIDE 115 mmol/L (98-107); GLUCOSE 192 mg/dL (75-110); SODIUM 140.4 mmol/L (137-145)
[2017-12-16 03:06] LABS: POTASSIUM 4.1 mmol/L (3.6-5.0)
[2017-12-16] MEDS: DEXTROSE 5%-1/2 NORMAL SALINE 1,000 ML IV PRN ×2 (04:05→09:59)
[2017-12-16 06:38] LABS: ANION GAP 8 (5-19); BLOOD UREA NITROGEN 9 mg/dL (7-20); CALCIUM 8.3 mg/dL (8.4-10.2); CARBON DIOXIDE 16 mmol/L (22-30); CHLORIDE 114 mmol/L (98-107); GLUCOSE 147 mg/dL (75-110); POTASSIUM 3.7 mmol/L (3.6-5.0); SODIUM 137.7 mmol/L (137-145)
--- NOTE | 2017-12-16 06:57 | PDOC H&P ---
History of Present Illness Admission Date/PCP: 12/16/2017 [facility] History of Present Illness: SCOTT LEIVA is a 32 year old female with past medical history of diabetes mellitus who presents to the emergency department with complaints of nausea vomiting. Patient reports she developed nausea vomiting beginning this morning. She denies any diarrhea. She does admit to some muscle aches and abdominal pain. She denies any cough fevers or chills. She does report that this has been going around her [employer] [facility]. Patient is found to be in DKA with a pH of 6.95, a bicarbonate of 4. Referred to the hospitalist service. Past Medical History Cardiac Medical History: Reports: None Pulmonary Medical History: Reports: None Endocrine Medical History: Reports: Diabetes Mellitus Type 1, Diabetes Mellitus Type 2 Past Surgical History Past Surgical History: Reports: None Social History Smoking Status: Never Smoker Frequency of Alcohol Use: None Hx Recreational Drug Use: No Hx Prescription Drug Abuse: No - Advance Directive Resuscitation Status: Full Code Surrogate healthcare decision maker:: Belinda Sumner, friend Family History Family History: DM, Hypertension Parental Family History Reviewed: Yes Children Family History Reviewed: Yes Sibling(s) Family History Reviewed.: Yes Medication/Allergy Home Medications: Acetaminophen [Tylenol] 650 mg PO Q6HP PRN 09/05/17 Pnv No.95/Ferrous Fum/Folic AC [ Formula Tablet] 1 tab PO DAILY Insulin Glargine,Hum.rec.anlog [Lantus] 20 unit SQ BID #1 vial 09/07/17 Insulin Lispro [Humalog Insulin (Lispro) 100 unit/mL] 3 unit SUBCUT AC #1 vial 09/07/17 Allergies/Adverse Reactions: insulin lispro [From Humalog] Allergy (Verified 12/16/17 00:56) Review of Systems Constitutional: ABSENT: chills, fever(s), headache(s), weight gain, weight loss Eyes: ABSENT: visual disturbances Ears: ABSENT: hearing changes Cardiovascular: ABSENT: chest pain, dyspnea on exertion, edema, orthropnea, palpitations Respiratory: ABSENT: cough, hemoptysis Gastrointestinal: PRESENT: abdominal pain, nausea, vomiting. ABSENT: constipation, diarrhea, hematemesis, hematochezia Genitourinary: ABSENT: dysuria, hematuria Musculoskeletal: ABSENT: joint swelling Integumentary: ABSENT: rash, wounds Neurological: ABSENT: abnormal gait, abnormal speech, confusion, dizziness, focal weakness, syncope Psychiatric: ABSENT: anxiety, depression, homidical ideation, suicidal ideation Endocrine: ABSENT: cold intolerance, heat intolerance, polydipsia, polyuria Hematologic/Lymphatic: ABSENT: easy bleeding, easy bruising Physical Exam Vital Signs: Temp Pulse Resp BP Pulse Ox 97.3 F 68 18 114/68 100 12/15/17 15:45 12/15/17 15:45 12/15/17 15:45 12/15/17 15:45 12/15/17 15:45 Intake & Output 12/14/17 12/15/17 12/16/17 06:59 06:59 06:59 Weight 56 kg General appearance: PRESENT: severe distress, thin, well-developed Head exam: PRESENT: atraumatic, normocephalic Eye exam: PRESENT: conjunctiva pink, EOMI, PERRLA. ABSENT: scleral icterus Ear exam: PRESENT: normal external ear exam Mouth exam: PRESENT: dry mucosa, tongue midline Neck exam: ABSENT: carotid bruit, JVD, lymphadenopathy, thyromegaly Respiratory exam: PRESENT: clear to auscultation dannie. ABSENT: rales, rhonchi, wheezes Cardiovascular exam: PRESENT: RRR, +S1, +S2, tachycardia. ABSENT: diastolic murmur, rubs, systolic murmur Pulses: PRESENT: normal dorsalis pedis pul Vascular exam: PRESENT: normal capillary refill GI/Abdominal exam: PRESENT: normal bowel sounds, soft. ABSENT: distended, firm , guarding, mass, organolmegaly, rebound, rigid, tenderness Rectal exam: PRESENT: deferred Extremities exam: PRESENT: full ROM. ABSENT: calf tenderness, clubbing, pedal edema Neurological exam: PRESENT: alert, awake, oriented to person, oriented to place , oriented to time, oriented to situation, CN II-XII grossly intact. ABSENT: motor sensory deficit Psychiatric exam: PRESENT: appropriate affect, normal mood. ABSENT: homicidal ideation, suicidal ideation Skin exam: PRESENT: dry, intact, warm. ABSENT: cyanosis, rash Results Laboratory Results: 12/15/17 17:00 12/15/17 22:13 12/15/17 12/15/17 12/15/17 17:00 17:00 17:00 WBC 18.1 H RBC 5.30 H Hgb 15.4 Hct 48.1 H MCV 91 MCH 29.0 MCHC 32.0 RDW 13.5 Plt Count 336 Seg Neutrophils % 86.2 H Lymphocytes % 10.8 L Monocytes % 2.4 L Eosinophils % 0.1 Basophils % 0.5 Absolute Neutrophils 15.6 H Absolute Lymphocytes 2.0 Absolute Monocytes 0.4 Absolute Eosinophils 0.0 Absolute Basophils 0.1 VBG pH VBG pCO2 VBG HCO3 VBG Base Excess Sodium 142.9 Potassium 5.9 H Chloride 106 Carbon Dioxide 7 L* Anion Gap 30 H BUN 13 Creatinine 0.71 Est GFR ( Amer) > 60 Est GFR (Non-Af Amer) > 60 Glucose 312 H Calcium 10.6 H Total Bilirubin 0.5 AST 18 ALT 22 Alkaline Phosphatase 68 Total Protein 8.6 H Albumin 5.3 H Lipase 48.6 Urine Color STRAW Urine Appearance CLEAR Urine pH 5.0 Ur Specific [place] 1.015 Urine Protein 30 H Urine Glucose (UA) >=500 H Urine Ketones 80 H Urine Blood NEGATIVE Urine Nitrite NEGATIVE Ur Leukocyte Esterase NEGATIVE Urine WBC (Auto) 0 Urine RBC (Auto) 0 12/15/17 12/15/17 18:31 22:13 WBC RBC Hgb Hct MCV MCH MCHC RDW Plt Count Seg Neutrophils % Lymphocytes % Monocytes % Eosinophils % Basophils % Absolute Neutrophils Absolute Lymphocytes Absolute Monocytes Absolute Eosinophils Absolute Basophils VBG pH 6.95 L* VBG pCO2 30.4 L VBG HCO3 6.5 L VBG Base Excess -24.8 Sodium 145.8 H Potassium 5.4 H Chloride 115 H Carbon Dioxide 8 L* Anion Gap 23 H BUN 11 Creatinine 0.61 Est GFR ( Amer) > 60 Est GFR (Non-Af Amer) > 60 Glucose 169 H Calcium 9.3 Total Bilirubin AST ALT Alkaline Phosphatase Total Protein Albumin Lipase Urine Color Urine Appearance Urine pH Ur Specific [place] Urine Protein Urine Glucose (UA) Urine Ketones Urine Blood Urine Nitrite Ur Leukocyte Esterase Urine WBC (Auto) Urine RBC (Auto) Impressions: Abdomen/Pelvis CT 12/15/17 18:29 IMPRESSION: MILD RIGHT HYDRONEPHROSIS WITH SLIGHTLY DELAYED EXCRETION OF CONTRAST. NO OBSTRUCTING MASS OR STONE IDENTIFIED. FINDINGS COULD BE SECONDARY TO A NONVISUALIZED OR PASSED URINARY TRACT CALCULUS OR POSSIBLY PYELONEPHRITIS. CORRELATE WITH URINALYSIS AND RIGHT FLANK PAIN. OTHERWISE UNREMARKABLE CONTRAST-ENHANCED CT OF THE ABDOMEN AND PELVIS. Assessment & Plan - Diagnosis (1) Diabetic ketoacidosis associated with type 1 diabetes mellitus Qualifiers: Diabetes mellitus complication detail: without coma Qualified Code(s): E10.10 - Type 1 diabetes mellitus with ketoacidosis without coma Is this a current diagnosis for this admission?: Yes Plan: Place patient on insulin drip and telemetry. Patient has received 2 L of normal saline bolus. Will continue every 4 BMPs. This is likely secondary to a viral process. (2) Dehydration Is this a current diagnosis for this admission?: Yes - Time Time Spent: 30 to 50 Minutes Medications reviewed and adjusted accordingly: Yes Anticipated discharge: Home Within: Other - Upon improvement of symptomatology
[2017-12-16] MEDS ORDERED: ENOXAPARIN SODIUM INJ 40 MG/0.4 ML DISP.SYRIN SUBCUT SCH (10:00)
[2017-12-16] MEDS ORDERED: INSULIN LISPRO 100 UNIT/ML 3 ML VIAL SUBCUT PRN (10:22)
[2017-12-16] MEDS ORDERED: GLUCAGON,HUMAN RECOMB 1 MG INJ IM PRN (10:22)
[2017-12-16 10:36] LABS: ANION GAP 7 (5-19); BLOOD UREA NITROGEN 8 mg/dL (7-20); CALCIUM 8.4 mg/dL (8.4-10.2); CARBON DIOXIDE 19 mmol/L (22-30); CHLORIDE 114 mmol/L (98-107); GLUCOSE 87 mg/dL (75-110); POTASSIUM 3.6 mmol/L (3.6-5.0)
[2017-12-16 15:09] LABS: ANION GAP 12 (5-19); BLOOD UREA NITROGEN 6 mg/dL (7-20); CALCIUM 8.5 mg/dL (8.4-10.2); CARBON DIOXIDE 15 mmol/L (22-30); CHLORIDE 110 mmol/L (98-107); GLUCOSE 328 mg/dL (75-110); POTASSIUM 4.1 mmol/L (3.6-5.0); SODIUM 136.9 mmol/L (137-145)
--- NOTE | 2017-12-16 15:26 | PDOC PROGRESS REPORT ---
Subjective Progress Note for:: 12/16/17 Reason For Visit: DKA 32-year-old female with history of insulin-dependent diabetes who presented to the hospital on December 15 with nausea vomiting muscle aches and abdominal pain. She was found to be in DKA with a pH of 6.95 and bicarb level of 4. She was started on an insulin drip. Her gap is closed. We will stop the drip and start her on a diet and back to her outpatient Lantus dose of 20 twice a day. Is actually doing much better. She tolerated her diet and is stable to be discharged home. Physical Exam Vital Signs: Temp Pulse Resp BP Pulse Ox 97.8 F 68 19 104/65 100 12/16/17 07:46 12/15/17 15:45 12/16/17 10:00 12/16/17 10:00 12/16/17 10:00 General appearance: PRESENT: no acute distress Head exam: PRESENT: atraumatic, normocephalic Eye exam: PRESENT: conjunctiva pink Mouth exam: PRESENT: moist Neck exam: PRESENT: full ROM. ABSENT: tracheal deviation Respiratory exam: PRESENT: clear to auscultation dannie, symmetrical. ABSENT: chest wall tenderness Cardiovascular exam: PRESENT: RRR. ABSENT: systolic murmur GI/Abdominal exam: PRESENT: normal bowel sounds, soft. ABSENT: tenderness Rectal exam: PRESENT: deferred Neurological exam: PRESENT: alert, awake, oriented to person, oriented to place , oriented to time Results Laboratory Results: 12/16/17 10:08 12/16/17 12/16/17 12/16/17 02:22 06:12 10:08 Sodium 140.4 137.7 140.0 Potassium 4.1 D 3.7 3.6 Chloride 115 H 114 H 114 H Carbon Dioxide 13 L 16 L 19 L Anion Gap 12 8 7 BUN 9 9 8 Creatinine 0.51 L 0.44 L 0.46 L Est GFR ( Amer) > 60 > 60 > 60 Est GFR (Non-Af Amer) > 60 > 60 > 60 Glucose 192 H 147 H 87 Calcium 8.4 8.3 L 8.4 Impressions: Abdomen/Pelvis CT 12/15/17 18:29 IMPRESSION: MILD RIGHT HYDRONEPHROSIS WITH SLIGHTLY DELAYED EXCRETION OF CONTRAST. NO OBSTRUCTING MASS OR STONE IDENTIFIED. FINDINGS COULD BE SECONDARY TO A NONVISUALIZED OR PASSED URINARY TRACT CALCULUS OR POSSIBLY PYELONEPHRITIS. CORRELATE WITH URINALYSIS AND RIGHT FLANK PAIN. OTHERWISE UNREMARKABLE CONTRAST-ENHANCED CT OF THE ABDOMEN AND PELVIS. Assessment & Plan - Diagnosis (1) Dehydration Is this a current diagnosis for this admission?: Yes (2) Diabetic ketoacidosis associated with type 1 diabetes mellitus Qualifiers: Diabetes mellitus complication detail: without coma Qualified Code(s): E10.10 - Type 1 diabetes mellitus with ketoacidosis without coma Is this a current diagnosis for this admission?: Yes Plan: Resolved. (3) Metabolic acidosis Is this a current diagnosis for this admission?: Yes Plan: Due to DKA. Resolved (4) Abdominal pain Qualifiers: Abdominal location: lower abdomen, unspecified Qualified Code(s): R10.30 - Lower abdominal pain, unspecified Is this a current diagnosis for this admission?: Yes - Time Time Spent with patient: 15-24 minutes
--- NOTE | 2017-12-16 15:29 | PDOC DISCHARGE SUMMARY ---
General - Admit/Disc Date/PCP Admission Date/Primary Care Provider: 12/16/17 00:00 Discharge Date: 12/16/17 - Discharge Diagnosis (1) Diabetic ketoacidosis associated with type 1 diabetes mellitus Is this a current diagnosis for this admission?: Yes - Additional Information Resuscitation Status: Full Code Discharge Diet: Diabetic Home Medications: Insulin Aspart [Novolog Flexpen] 5 unit SUBCUT MEALS 12/16/17 Insulin Glargine,Hum.rec.anlog [Lantus Solostar] 20 unit SQ Q12 12/16/17 History of Present Illness History of Present Illness: 32-year-old female with history of insulin-dependent diabetes who presented to the hospital on December 15 with nausea vomiting muscle aches and abdominal pain. 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 She was found to be in DKA with a pH of 6.95 and bicarb level of 4. She was started on an insulin drip. Which was stopped once her anion gap normalized and she was started on her outpatient insulin dosage and a diabetic diet which she tolerated well. She is doing much better. She tolerated her diet and is stable to be discharged home. Sugars are well controlled. No changes to her outpatient medications. Next Physical Exam Vital Signs: Temp Pulse Resp BP Pulse Ox 97.8 F 68 16 98/69 L 100 12/16/17 07:46 12/15/17 15:45 12/16/17 11:00 12/16/17 11:00 12/16/17 11:00 Eye exam: PRESENT: conjunctiva pink Mouth exam: PRESENT: moist Neck exam: ABSENT: tracheal deviation Respiratory exam: PRESENT: clear to auscultation dannie, symmetrical, unlabored. ABSENT: accessory muscle use Cardiovascular exam: PRESENT: RRR Results Laboratory Results: 12/16/17 10:08 12/16/17 12/16/17 12/16/17 02:22 06:12 10:08 Sodium 140.4 137.7 140.0 Potassium 4.1 D 3.7 3.6 Chloride 115 H 114 H 114 H Carbon Dioxide 13 L 16 L 19 L Anion Gap 12 8 7 BUN 9 9 8 Creatinine 0.51 L 0.44 L 0.46 L Est GFR ( Amer) > 60 > 60 > 60 Est GFR (Non-Af Amer) > 60 > 60 > 60 Glucose 192 H 147 H 87 Calcium 8.4 8.3 L 8.4 Impressions: Abdomen/Pelvis CT 12/15/17 18:29 IMPRESSION: MILD RIGHT HYDRONEPHROSIS WITH SLIGHTLY DELAYED EXCRETION OF CONTRAST. NO OBSTRUCTING MASS OR STONE IDENTIFIED. FINDINGS COULD BE SECONDARY TO A NONVISUALIZED OR PASSED URINARY TRACT CALCULUS OR POSSIBLY PYELONEPHRITIS. CORRELATE WITH URINALYSIS AND RIGHT FLANK PAIN. OTHERWISE UNREMARKABLE CONTRAST-ENHANCED CT OF THE ABDOMEN AND PELVIS. Plan Discharge Plan: Discharge home. Follow-up with primary care in 1 week Prescriptions were given for Lantus vial and NovoLog pen Time Spent: Less than 30 Minutes
[2017-12-16 15:31] VITALS: BP 114/69
[2017-12-16] MEDS ORDERED: INSULIN GLARGINE,HUM.REC.ANLOG 300 UNIT/3 ML INSULN.PEN SUBCUT SCH (22:00)
== END 2017-12-16 15:54 | disposition home or self-care (01) ==
LOC: ER 15:45 → INTOOBSV 12-16 → EH 12-16
PROVIDERS: ADMIT Family Medicine; ATTEND Family Medicine
DX: E10.10 Type 1 diabetes mellitus with ketoacidosis without coma (principal); A08.4 Viral intestinal infection, unspecified; E86.0 Dehydration; Z79.4 Long term (current) use of insulin; Z83.3 Family history of diabetes mellitus
CPT/HCPCS: 99291; 96361; 96374; 96375; 36415 ×2; 87086; 82010; 82962 ×2; 83690; 80307; 85025; 81025; 80048; 80053; 81001; 82803; 74177; G0378; J2270; J1815; J3490; J2405; J7030

== ENCOUNTER 2018-02-10 11:47 | Emergency (ER) | payer MEDICAID ==
--- NOTE | 2018-02-10 12:17 | ER Document Report ---
ED General - General Chief Complaint: Shortness Of Breath Stated Complaint: SHORTNESS OF BREATH/ LOWER ABDOMINAL PAIN Time Seen by Provider: 02/10/18 12:16 Mode of Arrival: Ambulatory Information source: Patient Notes: 33-year-old TRAVEL OUTSIDE OF THE [place] IN LAST 30 DAYS: No - Related Data Allergies/Adverse Reactions: insulin lispro [From Humalog] Allergy (Verified 02/10/18 11:51) Past Medical History - Social History Family History: DM, Hypertension Endocrine Medical History: Reports: Hx Diabetes Mellitus Type 1, Hx Diabetes Mellitus Type 2 Renal/ Medical History: Denies: Hx Peritoneal Dialysis Psychiatric Medical History: Denies: Hx Depression Physical Exam - Vital signs Vitals: Temp Pulse Resp BP Pulse Ox 97.6 F 87 18 119/77 99 02/10/18 11:54 02/10/18 11:54 02/10/18 11:54 02/10/18 11:54 02/10/18 11:54 Course - Vital Signs Vital signs: Temp Pulse Resp BP Pulse Ox 97.6 F 87 18 119/77 99 02/10/18 11:54 02/10/18 11:54 02/10/18 11:54 02/10/18 11:54 02/10/18 11:54
[2018-02-10] MEDS ORDERED: NORMAL SALINE 1000 ML 1,000 ML IV PRN (12:26)
--- NOTE | 2018-02-10 12:31 | ER Document Report ---
ED Medical Screen (RME) - General Chief Complaint: Shortness Of Breath Stated Complaint: SHORTNESS OF BREATH/ LOWER ABDOMINAL PAIN Time Seen by Provider: 02/10/18 12:16 Mode of Arrival: Ambulatory Information source: Patient Notes: 33-year-old diabetic female presents with complaints of high blood sugar abdominal pain nausea. Patient denies any fevers or chills denies any vomiting Patient has been in DKA twice in the recent past is on Lantus and NovoLog I have greeted and performed a rapid initial assessment of this patient. A comprehensive ED assessment and evaluation of the patient, analysis of test results and completion of the medical decision making process will be conducted by additional ED providers. PHYSICAL EXAMINATION: GENERAL: Well-appearing, well-nourished and in no acute distress. HEAD: Atraumatic, normocephalic. EYES: Pupils equal round extraocular movements intact, conjunctiva are normal. ENT: Nares patent NECK: Normal range of motion LUNGS: No respiratory distress Musculoskeletal: Normal range of motion NEUROLOGICAL: Normal speech, normal gait. PSYCH: Normal mood, normal affect. SKIN: Warm, Dry, normal turgor, no rashes or lesions noted. TRAVEL OUTSIDE OF THE [place] IN LAST 30 DAYS: No - Related Data Allergies/Adverse Reactions: insulin lispro [From Humalog] Allergy (Verified 02/10/18 11:51) Past Medical History Endocrine Medical History: Reports: Hx Diabetes Mellitus Type 1, Hx Diabetes Mellitus Type 2 Renal/ Medical History: Denies: Hx Peritoneal Dialysis Psychiatric Medical History: Denies: Hx Depression - Immunizations History of Influenza Vaccine for 08/2017 - 01/2018 Season: Yes Influenza Administration Date for 08/2017 - 01/2018 Season: 08/31/17 Physical Exam - Vital signs Vitals: Temp Pulse Resp BP Pulse Ox 97.6 F 87 18 119/77 99 02/10/18 11:54 02/10/18 11:54 02/10/18 11:54 02/10/18 11:54 02/10/18 11:54 Course - Vital Signs Vital signs: Temp Pulse Resp BP Pulse Ox 97.6 F 87 18 119/77 99 02/10/18 11:54 02/10/18 11:54 02/10/18 11:54 02/10/18 11:54 02/10/18 11:54
[2018-02-10 12:55] LABS: ABSOLUTE BASOPHILS # (AUTO) 0.1 10^3/uL (0.0-0.2); ABSOLUTE EOSINOPHILS # (AUTO) 0.1 10^3/uL (0.0-0.6); ABSOLUTE LYMPHOCYTES (AUTO) 2.2 10^3/uL (0.5-4.7); ABSOLUTE MONOCYTES (AUTO) 0.4 10^3/uL (0.1-1.4); ABSOLUTE NEUT (AUTO) 3.6 10^3/uL (1.7-8.2); EOSINOPHILS % (AUTO) 1.1 % (0-6); HEMOGLOBIN 15.5 g/dL (12.0-15.5); LYMPHOCYTES % (AUTO) 34.7 % (13-45); MEAN CORPUSCULAR HEMOGLOBIN 29.2 pg (27.0-33.4); MEAN CORPUSCULAR HGB CONC 33.7 g/dL (32.0-36.0); MEAN CORPUSCULAR VOLUME 87 fl (80-97); MONOCYTES % (AUTO) 5.8 % (3-13); PLATELET COUNT 276 10^3/uL (150-450); RED BLOOD COUNT 5.31 10^6/uL (3.72-5.28); RED CELL DISTRIBUTION WIDTH 13.6 % (11.5-14.0); SEGMENTED NEUTROPHILS % (AUTO) 57.4 % (42-78); TOTAL CELLS COUNTED % (AUTO) 100 %; WHITE BLOOD COUNT 6.2 10^3/uL (4.0-10.5)
[2018-02-10 13:15] LABS: ALANINE AMINOTRANSFERASE 18 U/L (9-52); ALBUMIN 4.8 g/dL (3.5-5.0); ALKALINE PHOSPHATASE 49 U/L (38-126); ANION GAP 13 (5-19); ASPARTATE AMINO TRANSFERASE 23 U/L (14-36); BILIRUBIN,DIRECT 0.3 mg/dL (0.0-0.4); BILIRUBIN,TOTAL 0.8 mg/dL (0.2-1.3); BLOOD UREA NITROGEN 15 mg/dL (7-20); CALCIUM 10.2 mg/dL (8.4-10.2); CARBON DIOXIDE 24 mmol/L (22-30); CHLORIDE 98 mmol/L (98-107); GLUCOSE 395 mg/dL (75-110); LIPASE 94.4 U/L (23-300); POTASSIUM 4.7 mmol/L (3.6-5.0); SODIUM 134.7 mmol/L (137-145); TOTAL PROTEIN 8.3 g/dL (6.3-8.2)
--- NOTE | 2018-02-10 13:22 | ER Document Report ---
ED General - General Chief Complaint: Shortness Of Breath Stated Complaint: SHORTNESS OF BREATH/ LOWER ABDOMINAL PAIN Time Seen by Provider: 02/10/18 12:16 Mode of Arrival: Ambulatory Notes: The patient is a 33 yo female, PMHx Type 1 DM, presents with mild shortness of breath and suprapubic abdominal cramping. Her blood sugar was running in the 400s at home earlier today and she did not take her morning 20 units of insulin. Patient is concerned she is back in DKA. She denies nausea, vomiting , flank pain, fevers, chest pain, leg swelling, OCP use, hemoptysis, cough, headache or back pain. TRAVEL OUTSIDE OF THE [place] IN LAST 30 DAYS: No - Related Data Allergies/Adverse Reactions: insulin lispro [From Humalog] Allergy (Verified 02/10/18 11:51) Past Medical History - General Information source: Patient - Social History Smoking Status: Never Smoker Chew tobacco use (# tins/day): No Frequency of alcohol use: Rare Drug Abuse: None Family History: DM, Hypertension Patient has suicidal ideation: No Patient has homicidal ideation: No Endocrine Medical History: Reports: Hx Diabetes Mellitus Type 1, Hx Diabetes Mellitus Type 2 Renal/ Medical History: Denies: Hx Peritoneal Dialysis Psychiatric Medical History: Denies: Hx Depression Review of Systems - Review of Systems Notes: REVIEW OF SYSTEMS: CONSTITUTIONAL: -fevers, -chills EENT: -eye pain, -difficulty swallowing, -nasal congestion CARDIOVASCULAR: -chest pain, -syncope. RESPIRATORY: -cough, +SOB GASTROINTESTINAL: -abdominal pain, -nausea, -vomiting, -diarrhea GENITOURINARY: -dysuria, -hematuria MUSCULOSKELETAL: -back pain, -neck pain SKIN: -rash or skin lesions. HEMATOLOGIC: -easy bruising or bleeding. LYMPHATIC: -swollen, enlarged glands. NEUROLOGICAL: -altered mental status or loss of consciousness, -headache, - neurologic symptoms PSYCHIATRIC: -anxiety, -depression. ALL OTHER SYSTEMS REVIEWED AND NEGATIVE. Physical Exam - Vital signs Vitals: Temp Pulse Resp BP Pulse Ox 97.6 F 87 18 119/77 99 02/10/18 11:54 02/10/18 11:54 02/10/18 11:54 02/10/18 11:54 02/10/18 11:54 - Notes Notes: PHYSICAL EXAMINATION: GENERAL: Well-appearing, well-nourished and in no acute distress. HEAD: Atraumatic, normocephalic. EYES: Pupils equal round and reactive to light, extraocular movements intact, sclera anicteric, conjunctiva are normal. ENT: nares patent, oropharynx clear without exudates. Moist mucous membranes. NECK: Normal range of motion, supple without lymphadenopathy LUNGS: Breath sounds clear to auscultation bilaterally and equal. No wheezes rales or rhonchi. HEART: Regular rate and rhythm without murmurs ABDOMEN: Soft, nontender, normoactive bowel sounds. No guarding, no rebound. No masses appreciated. EXTREMITIES: Normal range of motion, no pitting or edema. No cyanosis. NEUROLOGICAL: Cranial nerves grossly intact. Normal speech, normal gait. Normal sensory and motor exams. PSYCH: Normal mood, normal affect. SKIN: Warm, Dry, normal turgor, no rashes or lesions noted. Course - Re-evaluation Re-evalutation: Patient appears very well. No signs of DKA with a normal anion gap, normal pH and normal vital signs. She has some ketones in her urine and was provided with IV fluids and her sliding scale NovoLog. Chest x-ray does not show any acute abnormalities and she is in no respiratory distress satting 97% on room air. She is PERC negative. Instructed her to stay hydrated and follow with her primary care physician. Given very strict return precautions and she understands. - Vital Signs Vital signs: Temp Pulse Resp BP Pulse Ox 97.6 F 87 18 119/77 99 02/10/18 11:54 02/10/18 11:54 02/10/18 11:54 02/10/18 11:54 02/10/18 11:54 - Laboratory Result Diagrams: 02/10/18 12:45 02/10/18 12:45 Laboratory results interpreted by me: 02/10/18 02/10/18 02/10/18 12:45 12:45 12:53 RBC 5.31 H Sodium 134.7 L Glucose 395 H POC Glucose Total Protein 8.3 H Urine Glucose (UA) >=500 H Urine Ketones 20 H 02/10/18 12:53 RBC Sodium Glucose POC Glucose 349 H Total Protein Urine Glucose (UA) Urine Ketones - Diagnostic Test Radiology reviewed: Image reviewed, Reports reviewed Radiology results interpreted by me: CXR: NAD Discharge - Discharge Clinical Impression: Hyperglycemia, Shortness of breath Condition: Stable Disposition: HOME, SELF-CARE Additional Instructions: HYPERGLYCEMIA (HIGH BLOOD SUGAR): You have an abnormally high blood sugar. Not all high blood sugar requires long-term treatment. High blood sugar can be due to medications, , or the stress of illness. (These cases are "borderline diabetes.") If the doctor feels your high blood sugar might resolve with time, you may not require treatment now. It's very important that you follow through, to see if the blood sugar returns to normal levels. Uncontrolled high blood sugar leads to early heart disease, strokes, nerve damage, eye damage, and kidney damage. Call the physician if there is faintness, excess sleepiness, or very rapid breathing. DIABETES: You have an abnormally high blood sugar, suspicious for diabetes. Not all high blood sugar requires long-term treatment. High blood sugar can be due to medications, , or the stress of illness. (These cases are "borderline diabetes.") If the doctor feels your high blood sugar might get better with time, you may not require treatment now. It's very important that you follow through. Uncontrolled high blood sugar leads to early heart disease, strokes, nerve damage, eye damage, and kidney damage. All diabetics should follow a diet designed to control the blood sugar. Overweight diabetics should exercise regularly and lose weight. If this is not sufficient to control the blood sugar, pills or insulin shots are necessary. Younger people who develop diabetes almost always require insulin daily. Home testing of blood sugars or urine sugar is required. Diabetic teaching is available to help you figure insulin doses and monitor the blood sugar. Call the physician if there is faintness, excess sleepiness, or very rapid breathing. If hypoglycemia (LOW blood sugar) develops, symptoms are shakiness, weakness, sweating, and confusion. In this case, you should eat or drink something with sugar at once. INSULIN: Insulin is a natural hormone that lowers blood sugar. Normal blood sugar prevents complications of diabetes. For most diabetics, insulin is the best way to treat the illness. Be sure you know how to measure the insulin correctly. Insulin is measured in "units." There are three types of insulin: N (NPH or long acting), R (regular or short acting), and L (Lente or very long acting). Be sure you are using the right amount of each type. Insulin must be injected into the fat. You can use the abdomen, upper arms , and thighs. Select a different injection site every time. Wipe the site with alcohol before injecting. When first starting insulin, some adjusting of the insulin dose is necessary. Keep a record of each insulin dose and time of injection, and of the blood sugar and the time you test it. Sometimes insulin can make the blood sugar too low. If you become dizzy, sweaty, shaky, or confused, you may be having a hypoglycemic episode. Immediately use juice or some other sweet food. Call the doctor if the symptoms don't go away. FOLLOW-UP CARE: If you have been referred to a physician for follow-up care, call the physician s office for an appointment as you were instructed or within the next two days. If you experience worsening or a significant change in your symptoms, notify the physician immediately or return to the Emergency Department at any time for re-evaluation. SHORTNESS OF BREATH OR DYSPNEA: You were evaluated for shortness of breath, or dyspnea. Dyspnea has many causes, and some are more serious than others. Sometimes it's impossible to diagnose the cause of dyspnea with the tests that are available on an emergency basis. Based on our evaluation today, you do not need hospitalization now. We found no evidence of pneumonia, collapsed lung, blood clots in the lung, tumors , or heart failure. Causes of non-specific dyspnea can include asthma or bronchospasm, hyperventilation, emotional distress, heart disease, emphysema, fibrosis of the lung, and stiffness of the chest wall. In healthy individuals with a single episode, it's sometimes reasonable to do nothing but wait to see if the problem occurs again. Additional tests used to evaluate dyspnea can include cardiac stress testing, echocardiography, pulmonary function testing, CAT scan of the chest, bronchoscopy or pulmonary biopsy. Return if shortness of breath persists or worsens, or if you develop chest pain, fever, cough, confusion, or fainting. NORMAL EXAM AND WORKUP: At this time, your examination and workup show no significant abnormality. No significant abnormal physical findings were noted. All laboratory, EKG, and imaging (x-ray, CT scans, ultrasound) studies that were ordered show no significant abnormality. Although your examination and all studies that were ordered showed no significant abnormal finding, there are no examinations and no studies that are 100% accurate. There is always the possibility that some abnormality could exist and not be detected with physical examination or within the limits and capabilities of laboratory and other studies. You should return or follow up as you were instructed on your visit today for further evaluation if your symptoms do not resolve. FOLLOW-UP CARE: If you have been referred to a physician for follow-up care, call the physician s office for an appointment as you were instructed or within the next two days. If you experience worsening or a significant change in your symptoms, notify the physician immediately or return to the Emergency Department at any time for re-evaluation. Referrals: GALLO NICHOLE MD [ACTIVE STAFF] - Follow up as needed
[2018-02-10 13:33] LABS: APPEARANCE,URINE CLEAR; BILIRUBIN,URINE NEGATIVE (NEGATIVE); COLOR,URINE YELLOW; GLUCOSE, URINE >=500 mg/dL (NEGATIVE); KETONES,URINE 20 mg/dL (NEGATIVE); LEUKOCYTE ESTERASE,URINE NEGATIVE (NEGATIVE); NITRITE,URINE NEGATIVE (NEGATIVE); PROTEIN,URINE NEGATIVE (NEGATIVE); URINE SPECIFIC GRAVITY 1.037; UROBILINOGEN,URINE NEGATIVE mg/dL (<2.0)
[2018-02-10 13:44] LABS: VENOUS BLOOD BASE EXCESS -1.6 mmol/L; VENOUS BLOOD HCO3 23.4 mmol/L (20-32); VENOUS BLOOD PCO2 40.6 mmHg (35-63); VENOUS BLOOD PH 7.38 (7.30-7.42)
--- NOTE | 2018-02-10 14:04 | RADIOLOGY REPORT (SQ) ---
EXAM DESCRIPTION: CHEST SINGLE VIEW COMPLETED DATE/TIME: 02/10/2018 1:51 pm REASON FOR STUDY: SOB COMPARISON: None. EXAM PARAMETERS: NUMBER OF VIEWS: One view. TECHNIQUE: Single frontal radiographic view of the chest acquired. RADIATION DOSE: NA LIMITATIONS: None. FINDINGS: LUNGS AND PLEURA: No opacities, masses or pneumothorax. No pleural effusion. MEDIASTINUM AND HILAR STRUCTURES: No masses. Contour normal. HEART AND VASCULAR STRUCTURES: Heart normal in size. Normal vasculature. BONES: No acute findings. HARDWARE: None in the chest. OTHER: No other significant finding. IMPRESSION: NO ACUTE RADIOGRAPHIC FINDING IN THE CHEST. TECHNICAL DOCUMENTATION: JOB ID: [id number] [employer]- All Rights Reserved Reading location - IP/workstation name: [email or web address]
[2018-02-10 15:46] VITALS: BP 108/73
== END 2018-02-10 15:57 | disposition home or self-care (01) ==
LOC: ER 11:47
DX: E10.65 Type 1 diabetes mellitus with hyperglycemia (principal); T38.3X6A Underdosing of insulin and oral hypoglycemic [antidiabetic] drugs, initial encounter; Z91.14 Patient's other noncompliance with medication regimen; R06.02 Shortness of breath; R10.30 Lower abdominal pain, unspecified; Z88.8 Allergy status to other drugs, medicaments and biological substances
CPT/HCPCS: 99285; 96360; 36415; 82962; 83690; 85025; 81025; 80053; 81001; 82803; 71045; J7030

== ENCOUNTER 2018-05-07 02:19 | Inpatient (IN) | payer MEDICAID ==
[2018-05-07] MEDS ORDERED: ONDANSETRON HCL INJ/PF 4 MG/2 ML SDV IV ONE (03:29)
[2018-05-07] MEDS: NORMAL SALINE 1000 ML 1,000 ML IV PRN ×3 (03:54→14:19)
[2018-05-07 04:12] LABS: ABSOLUTE LYMPHOCYTES (AUTO) 1.5 10^3/uL (0.5-4.7); ABSOLUTE MONOCYTES (AUTO) 0.3 10^3/uL (0.1-1.4); ABSOLUTE NEUT (AUTO) 9.4 10^3/uL (1.7-8.2); BASOPHILS % (AUTO) 0.4 % (0-2); EOSINOPHILS % (AUTO) 0.1 % (0-6); HEMATOCRIT 45.9 % (36.0-47.0); HEMOGLOBIN 14.9 g/dL (12.0-15.5); LYMPHOCYTES % (AUTO) 12.9 % (13-45); MEAN CORPUSCULAR HEMOGLOBIN 29.4 pg (27.0-33.4); MEAN CORPUSCULAR HGB CONC 32.4 g/dL (32.0-36.0); MEAN CORPUSCULAR VOLUME 91 fl (80-97); MONOCYTES % (AUTO) 2.9 % (3-13); PLATELET COUNT 308 10^3/uL (150-450); RED BLOOD COUNT 5.05 10^6/uL (3.72-5.28); RED CELL DISTRIBUTION WIDTH 13.9 % (11.5-14.0); SEGMENTED NEUTROPHILS % (AUTO) 83.7 % (42-78); TOTAL CELLS COUNTED % (AUTO) 100 %; WHITE BLOOD COUNT 11.2 10^3/uL (4.0-10.5)
[2018-05-07 04:33] LABS: ALANINE AMINOTRANSFERASE 22 U/L (9-52); ALBUMIN 5.1 g/dL (3.5-5.0); ALKALINE PHOSPHATASE 64 U/L (38-126); ASPARTATE AMINO TRANSFERASE 16 U/L (14-36); BILIRUBIN,DIRECT 0.5 mg/dL (0.0-0.4); BILIRUBIN,TOTAL 0.5 mg/dL (0.2-1.3); BLOOD UREA NITROGEN 14 mg/dL (7-20); CALCIUM 10.4 mg/dL (8.4-10.2); CHLORIDE 106 mmol/L (98-107); LIPASE 41.6 U/L (23-300); POTASSIUM 5.6 mmol/L (3.6-5.0); TOTAL PROTEIN 8.1 g/dL (6.3-8.2)
--- NOTE | 2018-05-07 04:37 | ER Document Report ---
ED General - General Chief Complaint: High Blood Sugar Stated Complaint: BLOOD SUGAR PROBLEMS Time Seen by Provider: 05/07/18 03:24 Notes: Patient is a 33-year-old female presents with complaint of nausea vomiting and feeling weak. She says her follow-up blood sugars have been fluctuating. She states this been ongoing for days. She says she feels somewhat rested when she has DKA. No fevers. No diarrhea. She has some mild crampy abdominal pain that is diffuse. No other complaints at this time. She says she has been taking her insulin as prescribed. Dysuria. No abnormal vaginal discharge or bleeding. TRAVEL OUTSIDE OF THE [place] IN LAST 30 DAYS: No - Related Data Allergies/Adverse Reactions: insulin lispro [From Humalog] Allergy (Verified 02/10/18 11:51) Past Medical History - Social History Smoking Status: Unknown if Ever Smoked Chew tobacco use (# tins/day): No Frequency of alcohol use: None Drug Abuse: None Family History: DM, Hypertension Patient has suicidal ideation: No Patient has homicidal ideation: No Endocrine Medical History: Reports: Hx Diabetes Mellitus Type 1, Hx Diabetes Mellitus Type 2 Renal/ Medical History: Denies: Hx Peritoneal Dialysis Psychiatric Medical History: Denies: Hx Depression Review of Systems - Review of Systems Notes: My Normal Review Basic REVIEW OF SYSTEMS: CONSTITUTIONAL : Denies fever, chills, or sweats. Denies recent illness. EENT: Denies eye, ear, throat, or mouth pain or symptoms. Denies nasal or sinus congestion. CARDIOVASCULAR: Denies chest pain. RESPIRATORY: Denies cough, cold, or chest congestion. Denies shortness of breath, difficulty breathing, or wheezing. GASTROINTESTINAL: Abdominal pain and vomiting. GENITOURINARY: Denies difficulty urinating, painful urination, burning, frequency, or blood in urine. FEMALE GENITOURINARY: Denies vaginal bleeding, abnormal or irregular periods. MUSCULOSKELETAL: Denies neck or back pain or joint pain or swelling. SKIN: Denies rash or skin lesions. NEUROLOGICAL: Denies altered mental status or loss of consciousness. Denies headache. Denies weakness or paralysis or loss of use of either side. Denies problems with gait or speech. Denies sensory or motor loss. ALL OTHER SYSTEMS REVIEWED AND NEGATIVE. Physical Exam - Vital signs Vitals: Temp Pulse Resp BP Pulse Ox 97.7 F 123 H 18 109/73 99 06/07/18 02:27 05/07/18 02:27 05/07/18 02:27 05/07/18 02:05/07/18 02:27 - Notes Notes: General Appearance: Well nourished, alert, cooperative, no acute distress, no obvious discomfort. Weak appearing. Vitals: reviewed, See vital signs table. Head: no swelling or tenderness to the head Eyes: PERRL, EOMI, Conjuctiva clear Mouth: Dry mucous membranes. Throat: No tonsillar inflammation, No airway obstruction, No lymphadenopathy Neck: Supple, no neck tenderness, No thyromegaly Lungs: No wheezing, No rales, No rhonci, No accessory muscle use, good air exchange bilaterally. Heart: Normal rate, Regular rythm, No murmur, no rub Abdomen: Normal BS, soft, No rigidity, mild diffuse abdominal tenderness., No guarding, no rebound, no abdominal masses, no organomegaly Extremities: strength 5/5 in all extremities, good pulses in all extremities, no swelling or tenderness in the extremities, no edema. Skin: warm, dry, appropriate color, no rash Neuro: speech clear, oriented x 3, normal affect, responds appropriately to questions. Course - Re-evaluation Re-evalutation: 05/07/18 05:02 Patient's laboratory finding and history is consistent with that of DKA. The exact cause of is not clear. She does not have any signs of infection at this time but her urinalysis is pending. Patient is feeling improved with 2 L of IV fluids that she is already received. I will start her on a maintenance drip this will place her on insulin drip. I spoke with Dr. Ni, hospitalist, who agrees to admit the patient. Dictation of this chart was performed using voice recognition software; therefore, there may be some unintended grammatical errors. - Vital Signs Vital signs: Temp Pulse Resp BP Pulse Ox 97.7 F 123 H 18 109/73 99 05/07/18 02:27 05/07/18 02:27 05/07/18 02:27 05/07/18 02:27 05/07/18 02:27 - Laboratory Result Diagrams: 05/07/18 03:55 05/07/18 03:55 Laboratory results interpreted by me: 05/07/18 05/07/18 05/07/18 03:35 03:55 03:55 WBC 11.2 H Seg Neutrophils % 83.7 H Lymphocytes % 12.9 L Monocytes % 2.9 L Absolute Neutrophils 9.4 H Potassium 5.6 H Carbon Dioxide 10 L* Anion Gap 26 H Glucose 429 H* POC Glucose 407 H* Calcium 10.4 H Direct Bilirubin 0.5 H Albumin 5.1 H Discharge - Discharge Clinical Impression: DKA (diabetic ketoacidoses) Qualifiers: Diabetes mellitus type: other specified (including TUCKER) Diabetes mellitus complication detail: without coma Qualified Code(s): E13.10 - Other specified diabetes mellitus with ketoacidosis without coma Condition: Stable Disposition: ADMITTED INPATIENT Admitting Provider: Hospitalist Unit Admitted: [facility]
[2018-05-07 04:38] LABS: SODIUM 142.1 mmol/L (137-145)
[2018-05-07 04:47] LABS: ANION GAP 26 (5-19)
[2018-05-07 04:48] LABS: CARBON DIOXIDE 10 mmol/L (22-30); GLUCOSE 429 mg/dL (75-110)
[2018-05-07] MEDS ORDERED: DEXTROSE 40% GEL 15 GM TUBE PO PRN ×4 (04:50→04:51)
[2018-05-07] MEDS ORDERED: GLUCAGON,HUMAN RECOMB 1 MG INJ IM PRN ×2 (04:50→04:51)
[2018-05-07] MEDS ORDERED: DEXTROSE 50%-WATER 25 GM/50 ML DISP.SYRIN IV PRN ×4 (04:50→04:51)
[2018-05-07] MEDS ORDERED: NORMAL SALINE 100 ML with INSULIN REGULAR, HUMAN 100 UNIT IV PRN ×4 (04:50→04:51)
[2018-05-07] MEDS ORDERED: ONDANSETRON HCL INJ/PF 4 MG/2 ML SDV IV PRN (04:51)
[2018-05-07] MEDS ORDERED: MAG HYDROX/AL HYDROX/SIMETH SUSP 30 ML UDCUP PO PRN (04:51)
[2018-05-07] MEDS ORDERED: ACETAMINOPHEN 325 MG TABLET PO PRN (04:51)
[2018-05-07] MEDS ORDERED: NORMAL SALINE 1000 ML 1,000 ML IV SCH (05:00)
[2018-05-07] MEDS ORDERED: INSULIN REG, HUMAN 100 UNIT/ML 3 ML VIAL (PYX) ONE (05:12)
[2018-05-07 05:21] LABS: PHOSPHORUS 5.3 mg/dL (2.5-4.5)
[2018-05-07 05:43] LABS: URINE AMPHETAMINES SCREEN NEGATIVE; URINE BARBITURATES SCREEN NEGATIVE; URINE BENZODIAZEPINES SCREEN NEGATIVE; URINE COCAINE SCREEN NEGATIVE; URINE MARIJUANA (THC) SCREEN NEGATIVE; URINE METHADONE SCREEN NEGATIVE; URINE PHENCYCLIDINE SCREEN NEGATIVE
[2018-05-07 05:53] LABS: APPEARANCE,URINE CLEAR; BILIRUBIN,URINE NEGATIVE (NEGATIVE); COLOR,URINE STRAW; GLUCOSE, URINE >=500 mg/dL (NEGATIVE); KETONES,URINE 80 mg/dL (NEGATIVE); LEUKOCYTE ESTERASE,URINE NEGATIVE (NEGATIVE); NITRITE,URINE NEGATIVE (NEGATIVE); PROTEIN,URINE NEGATIVE (NEGATIVE); URINE SPECIFIC GRAVITY 1.015; UROBILINOGEN,URINE NEGATIVE mg/dL (<2.0)
--- NOTE | 2018-05-07 07:19 | PDOC H&P ---
History of Present Illness Admission Date/PCP: 05/07/18 05:09 Patient complains of: Hyperglycemia, abdominal pain nausea vomiting History of Present Illness: SCOTT LEIVA is a 33 year old female with history of insulin dependent diabetes and recurrent DKA presents with 2 days of abdominal pain nausea vomiting hyperglycemia polyuria polydipsia. She admits noncompliance with Humalog insulin fearing hypoglycemia. In the emergency room she is found to have severe increased gap metabolic acidosis and mild hyperkalemia. She started on IV fluid and insulin and referred to the hospitalist for admission. She denies fever chills or dysuria. Past Medical History Endocrine Medical History: Reports: Diabetes Mellitus Type 1, Diabetes Mellitus Type 2 Psychiatric Medical History: Denies: Depression Social History Information Source: Patient Smoking Status: Unknown if Ever Smoked Frequency of Alcohol Use: None Hx Recreational Drug Use: No Drugs: None Hx Prescription Drug Abuse: No - Advance Directive Resuscitation Status: Full Code Family History Family History: DM, Hypertension Parental Family History Reviewed: Yes Children Family History Reviewed: Yes Sibling(s) Family History Reviewed.: Yes Medication/Allergy Home Medications: Insulin Aspart [Novolog Flexpen] 5 unit SUBCUT MEALS 12/16/17 Insulin Glargine,Hum.rec.anlog [Lantus Solostar] 20 unit SQ Q12 12/16/17 Allergies/Adverse Reactions: insulin lispro [From Humalog] Allergy (Verified 02/10/18 11:51) Review of Systems Constitutional: PRESENT: as per HPI, anorexia, fatigue, weakness. ABSENT: chills, fever(s), headache(s), weight gain, weight loss Eyes: ABSENT: visual disturbances Ears: ABSENT: hearing changes Cardiovascular: ABSENT: chest pain, dyspnea on exertion, edema, orthropnea, palpitations Respiratory: ABSENT: cough, hemoptysis Gastrointestinal: PRESENT: as per HPI, abdominal pain, nausea, vomiting. ABSENT : constipation, diarrhea, hematemesis, hematochezia Genitourinary: PRESENT: as per HPI, other - Polyuria. ABSENT: dysuria, hematuria Musculoskeletal: ABSENT: joint swelling Integumentary: ABSENT: rash, wounds Neurological: ABSENT: abnormal gait, abnormal speech, confusion, dizziness, focal weakness, syncope Psychiatric: ABSENT: anxiety, depression, homidical ideation, suicidal ideation Endocrine: ABSENT: cold intolerance, heat intolerance, polydipsia, polyuria Hematologic/Lymphatic: ABSENT: easy bleeding, easy bruising Physical Exam Vital Signs: Temp Pulse Resp BP Pulse Ox 97.7 F 123 H 16 118/70 100 05/07/18 02:27 05/07/18 02:27 05/07/18 06:01 05/07/18 06:01 05/07/18 06:01 General appearance: PRESENT: no acute distress, well-developed, well-nourished Head exam: PRESENT: atraumatic, normocephalic Eye exam: PRESENT: conjunctiva pink, EOMI, PERRLA. ABSENT: scleral icterus Ear exam: PRESENT: normal external ear exam Mouth exam: PRESENT: dry mucosa, tongue midline Neck exam: ABSENT: carotid bruit, JVD, lymphadenopathy, thyromegaly Respiratory exam: PRESENT: clear to auscultation dannie. ABSENT: rales, rhonchi, wheezes Cardiovascular exam: PRESENT: RRR. ABSENT: diastolic murmur, rubs, systolic murmur Pulses: PRESENT: normal dorsalis pedis pul Vascular exam: PRESENT: normal capillary refill GI/Abdominal exam: PRESENT: normal bowel sounds, soft. ABSENT: distended, guarding, mass, organolmegaly, rebound, tenderness Rectal exam: PRESENT: deferred Extremities exam: PRESENT: full ROM. ABSENT: calf tenderness, clubbing, pedal edema Neurological exam: PRESENT: alert, awake, oriented to person, oriented to place , oriented to time, oriented to situation, CN II-XII grossly intact. ABSENT: motor sensory deficit Psychiatric exam: PRESENT: appropriate affect, normal mood. ABSENT: homicidal ideation, suicidal ideation Skin exam: PRESENT: dry, intact, warm. ABSENT: cyanosis, rash Results Laboratory Results: 05/07/18 05:12 Urine Color STRAW Urine Appearance CLEAR Urine pH 5.0 Ur Specific Sterrett 1.015 Urine Protein NEGATIVE Urine Glucose (UA) >=500 H Urine Ketones 80 H Urine Blood NEGATIVE Urine Nitrite NEGATIVE Ur Leukocyte Esterase NEGATIVE Urine WBC (Auto) 0 Urine RBC (Auto) 0 Assessment & Plan - Diagnosis (1) DKA (diabetic ketoacidoses) Qualifiers: Diabetes mellitus type: other specified (including TUCKER) Diabetes mellitus complication detail: without coma Qualified Code(s): E13.10 - Other specified diabetes mellitus with ketoacidosis without coma Is this a current diagnosis for this admission?: Yes Plan: Diabetic ketoacidosis patient has had some degree of polyuria polydipsia with nausea and uncontrolled hyperglycemia with supporting labs. Patient will receive IV fluids IV insulin serial chemistries every 6 hours for evaluation for electrolyte repletion. Continued evaluation for underlying cause if not found Patient will require diabetic education and consideration of mental health evaluation. (2) Abdominal pain Is this a current diagnosis for this admission?: Yes Plan: Secondary to #1 symptomatically management (3) Hyperkalemia Is this a current diagnosis for this admission?: Yes Plan: Secondary to #1, no peak T waves, reevaluate chemistry - Time Time Spent: 50 to 70 Minutes - Inpatient Certification Medical Necessity: Need Close Monitoring Due to Risk of Patient Decompensation
[2018-05-07] MEDS: HEPARIN SOD (PORCINE) 5,000 UNIT/ML 1 ML SYRINGE SUBCUT SCH ×3 (08:08→21:48)
[2018-05-07 10:24] LABS: BLOOD UREA NITROGEN 11 mg/dL (7-20); CALCIUM 9.1 mg/dL (8.4-10.2); CHLORIDE 116 mmol/L (98-107); GLUCOSE 137 mg/dL (75-110); SODIUM 143.3 mmol/L (137-145)
[2018-05-07 10:31] LABS: ANION GAP 18 (5-19)
[2018-05-07 10:40] LABS: POTASSIUM 4.4 mmol/L (3.6-5.0)
[2018-05-07 10:42] LABS: CARBON DIOXIDE 9 mmol/L (22-30)
[2018-05-07] MEDS ORDERED: DEXTROSE 5%-NORMAL SALINE 1,000 ML IV PRN (11:00)
[2018-05-07] MEDS ORDERED: INSULIN GLARGINE,HUM.REC.ANLOG 300 UNIT/3 ML INSULN.PEN SUBCUT ONE (12:00)
[2018-05-07 13:23] LABS: ANION GAP 13 (5-19); BLOOD UREA NITROGEN 11 mg/dL (7-20); CARBON DIOXIDE 15 mmol/L (22-30); CHLORIDE 114 mmol/L (98-107); GLUCOSE 118 mg/dL (75-110); SODIUM 141.8 mmol/L (137-145)
[2018-05-07] MEDS: INSULIN LISPRO 100 UNIT/ML 3 ML VIAL SUBCUT PRN ×2 (16:52→21:48)
[2018-05-07] MEDS: INSULIN GLARGINE,HUM.REC.ANLOG 300 UNIT/3 ML INSULN.PEN SUBCUT SCH (17:37)
--- NOTE | 2018-05-07 18:01 | PDOC PROGRESS REPORT ---
Subjective Progress Note for:: 05/07/18 Subjective:: The patient is a 33-year-old female with a history of insulin-dependent diabetes mellitus with recurrent DKA who was admitted on 05/07/18 with diabetic ketoacidosis. The patient is seen on rounds. She is found resting in bed comfortably on room air. She reports that her abdominal pain, nausea, and vomiting have all resolved. She was able to tolerate her lunch. She reports resolution of her polydipsia and polyuria. She has many questions regarding stress and sick day diabetes management. She is encouraged to talk with the nursing and conservation educator staff about all questions. Reason For Visit: DKA NAUSEA VOMITING Physical Exam Vital Signs: Temp Pulse Resp BP Pulse Ox 98.2 F 95 16 119/70 100 05/07/18 15:33 05/07/18 15:33 05/07/18 15:33 05/07/18 15:33 05/07/18 15:33 Intake & Output 05/06/18 05/07/18 05/08/18 06:59 06:59 06:59 Intake Total 0 Output Total 0 Balance 0 General appearance: PRESENT: no acute distress, cooperative - Tomorrow, thin, well-developed, well-nourished Head exam: PRESENT: atraumatic, normocephalic Eye exam: PRESENT: conjunctiva pink, EOMI, PERRLA. ABSENT: scleral icterus Ear exam: PRESENT: normal external ear exam Mouth exam: PRESENT: moist, tongue midline Neck exam: ABSENT: carotid bruit, JVD, lymphadenopathy, thyromegaly Respiratory exam: PRESENT: clear to auscultation dannie, symmetrical, unlabored. ABSENT: rales, rhonchi, wheezes Cardiovascular exam: PRESENT: RRR, +S1, +S2 - I. ABSENT: diastolic murmur, rubs, systolic murmur Pulses: PRESENT: normal dorsalis pedis pul Vascular exam: PRESENT: normal capillary refill GI/Abdominal exam: PRESENT: normal bowel sounds, soft. ABSENT: distended, guarding, mass, organolmegaly, rebound, tenderness Rectal exam: PRESENT: deferred Extremities exam: PRESENT: full ROM. ABSENT: calf tenderness, clubbing, pedal edema Neurological exam: PRESENT: alert, awake, oriented to person, oriented to place , oriented to time, oriented to situation, CN II-XII grossly intact. ABSENT: motor sensory deficit Psychiatric exam: PRESENT: appropriate affect, normal mood. ABSENT: homicidal ideation, suicidal ideation Skin exam: PRESENT: dry, intact, warm. ABSENT: cyanosis, rash Results Laboratory Results: 05/07/18 12:50 05/07/18 05/07/18 05/07/18 05:12 09:48 12:50 Sodium 143.3 141.8 Potassium 4.4 D 4.0 Chloride 116 H 114 H Carbon Dioxide 9 L* 15 L Anion Gap 18 13 BUN 11 11 Creatinine 0.46 L 0.45 L Est GFR ( Amer) > 60 > 60 Est GFR (Non-Af Amer) > 60 > 60 Glucose 137 H 118 H Calcium 9.1 9.0 Urine Color STRAW Urine Appearance CLEAR Urine pH 5.0 Ur Specific Commodore 1.015 Urine Protein NEGATIVE Urine Glucose (UA) >=500 H Urine Ketones 80 H Urine Blood NEGATIVE Urine Nitrite NEGATIVE Ur Leukocyte Esterase NEGATIVE Urine WBC (Auto) 0 Urine RBC (Auto) 0 Assessment & Plan - Diagnosis (1) DKA (diabetic ketoacidoses) Qualifiers: Diabetes mellitus type: other specified (including TUCKER) Diabetes mellitus complication detail: without coma Qualified Code(s): E13.10 - Other specified diabetes mellitus with ketoacidosis without coma Is this a current diagnosis for this admission?: Yes Plan: The patient presented with 2 days of abdominal pain, nausea, vomiting, hyperglycemia, polyuria, and polydipsia. She admitted to noncompliance with Humalog insulin due to fear of hypoglycemia; today she discusses that her job prevents her from being able to check her glucose or eat regularly. We discussed options for managing her work/health requirements today. She was admitted to [facility] on continuous cardiac telemetry. She has been provided aggressive IV fluid rehydration. She was initially placed on an insulin drip; her anion gap has subsequently closed. She is placed on a consistent carb diet and she has been returned to subcutaneous insulin. Bicarb remains elevated and therefore she remains on generous IV fluids. The conservation educator and registered dietitian have been consulted; appreciate their assistance. (2) Abdominal pain Is this a current diagnosis for this admission?: Yes Plan: Resolved. Secondary to #1. (3) Hyperkalemia Is this a current diagnosis for this admission?: Yes Plan: Resolved. Secondary to #1. (4) Leukocytosis Is this a current diagnosis for this admission?: Yes Plan: Likely a stress reaction secondary to diabetic ketoacidosis. Patient remains afebrile. No evidence of infectious process. No indications for antibiotics at this time. - Time Time Spent with patient: 35 or more minutes Medications reviewed and adjusted accordingly: Yes Anticipated discharge: Home Within: within 24 hours
[2018-05-07 18:35] LABS: ANION GAP 14 (5-19); BLOOD UREA NITROGEN 15 mg/dL (7-20); CALCIUM 8.6 mg/dL (8.4-10.2); CARBON DIOXIDE 15 mmol/L (22-30); CHLORIDE 110 mmol/L (98-107); GLUCOSE 283 mg/dL (75-110); SODIUM 138.7 mmol/L (137-145)
[2018-05-07 22:31] LABS: ANION GAP 11 (5-19); BLOOD UREA NITROGEN 15 mg/dL (7-20); CALCIUM 8.7 mg/dL (8.4-10.2); CARBON DIOXIDE 15 mmol/L (22-30); CHLORIDE 111 mmol/L (98-107); GLUCOSE 274 mg/dL (75-110); POTASSIUM 4.3 mmol/L (3.6-5.0); SODIUM 137.1 mmol/L (137-145)
[2018-05-08 02:54] LABS: ANION GAP 11 (5-19); BLOOD UREA NITROGEN 13 mg/dL (7-20); CARBON DIOXIDE 19 mmol/L (22-30); CHLORIDE 113 mmol/L (98-107); GLUCOSE 115 mg/dL (75-110); POTASSIUM 4.1 mmol/L (3.6-5.0)
[2018-05-08] MEDS: INSULIN GLARGINE,HUM.REC.ANLOG 300 UNIT/3 ML INSULN.PEN SUBCUT SCH (06:15)
[2018-05-08] MEDS: HEPARIN SOD (PORCINE) 5,000 UNIT/ML 1 ML SYRINGE SUBCUT SCH (06:15)
[2018-05-08 06:19] LABS: ABSOLUTE BASOPHILS # (AUTO) 0.1 10^3/uL (0.0-0.2); ABSOLUTE EOSINOPHILS # (AUTO) 0.1 10^3/uL (0.0-0.6); ABSOLUTE LYMPHOCYTES (AUTO) 2.7 10^3/uL (0.5-4.7); ABSOLUTE MONOCYTES (AUTO) 0.5 10^3/uL (0.1-1.4); ABSOLUTE NEUT (AUTO) 2.8 10^3/uL (1.7-8.2); BASOPHILS % (AUTO) 1.1 % (0-2); EOSINOPHILS % (AUTO) 1.5 % (0-6); HEMATOCRIT 37.6 % (36.0-47.0); LYMPHOCYTES % (AUTO) 43.8 % (13-45); MEAN CORPUSCULAR HEMOGLOBIN 29.7 pg (27.0-33.4); MEAN CORPUSCULAR HGB CONC 34.1 g/dL (32.0-36.0); MONOCYTES % (AUTO) 7.5 % (3-13); PLATELET COUNT 232 10^3/uL (150-450); RED BLOOD COUNT 4.32 10^6/uL (3.72-5.28); RED CELL DISTRIBUTION WIDTH 13.6 % (11.5-14.0); SEGMENTED NEUTROPHILS % (AUTO) 46.1 % (42-78); TOTAL CELLS COUNTED % (AUTO) 100 %; WHITE BLOOD COUNT 6.1 10^3/uL (4.0-10.5)
[2018-05-08 06:24] LABS: HEMOGLOBIN 12.8 g/dL (12.0-15.5); MEAN CORPUSCULAR VOLUME 87 fl (80-97)
[2018-05-08 06:37] LABS: ANION GAP 9 (5-19); BLOOD UREA NITROGEN 13 mg/dL (7-20); CARBON DIOXIDE 23 mmol/L (22-30); CHLORIDE 112 mmol/L (98-107); GLUCOSE 89 mg/dL (75-110); SODIUM 144.1 mmol/L (137-145)
[2018-05-08] MEDS: NORMAL SALINE 1000 ML 1,000 ML IV PRN (06:38)
[2018-05-08 08:36] VITALS: BP 123/74
[2018-05-08] MEDS ORDERED: INSULIN GLARGINE,HUM.REC.ANLOG 300 UNIT/3 ML INSULN.PEN SUBCUT SCH (10:00)
--- NOTE | 2018-05-08 15:57 | PDOC DISCHARGE SUMMARY ---
General - Admit/Disc Date/PCP Admission Date/Primary Care Provider: 05/07/18 05:09 Discharge Date: 05/08/18 - Discharge Diagnosis (1) DKA (diabetic ketoacidoses) Is this a current diagnosis for this admission?: Yes (2) Abdominal pain Is this a current diagnosis for this admission?: Yes (3) Hyperkalemia Is this a current diagnosis for this admission?: Yes (4) Leukocytosis Is this a current diagnosis for this admission?: Yes - Additional Information Resuscitation Status: Full Code Discharge Diet: Diabetic Discharge Activity: Activity As Tolerated, Slowly Increase Activity Prescriptions: Insulin Glargine,Hum.rec.anlog [Lantus Insulin 100 Unit/mL] 10 unit SUBCUT Q12 # 1 insuln.pen Home Medications: Insulin Aspart [Novolog Flexpen] 0 unit SUBCUT .SLD SCALE 05/07/18 Insulin Aspart [Novolog Flexpen] 5 unit SUBCUT ACBRKFST 05/07/18 Acetaminophen [Tylenol 325 mg Tablet] 650 mg PO Q4HP PRN tablet 05/08/18 Insulin Glargine,Hum.rec.anlog [Lantus Insulin 100 Unit/mL] 10 unit SUBCUT Q12 # 1 insuln.pen 05/08/18 History of Present Illness History of Present Illness: Per H&P by Dr. Ni: SCOTT LEIVA is a 33 year old female with history of insulin dependent diabetes and recurrent DKA presents with 2 days of abdominal pain nausea vomiting hyperglycemia polyuria polydipsia. She admits noncompliance with Humalog insulin fearing hypoglycemia. In the emergency room she is found to have severe increased gap metabolic acidosis and mild hyperkalemia. She started on IV fluid and insulin and referred to the hospitalist for admission. She denies fever chills or dysuria. Hospital Course Hospital Course: The patient presented with 2 days of abdominal pain, nausea, vomiting, hyperglycemia, polyuria, and polydipsia. She admitted to noncompliance with Humalog insulin due to fear of hypoglycemia. She was admitted to [facility] on continuous cardiac telemetry and treated with aggressive IV fluid rehydration. She was initially placed on an insulin drip; her anion gap subsequently closed she was transitioned to subcutaneous Lantus with Humalog for sliding scale coverage. Her diet was advanced to consistent carb diet. She remained on IV fluids until her electrolyte derangements normalized. The patient did meet with the inspection clerk. The patient admitted to regularly skipping her sliding scale doses as she had her work, life schedule often lead her to missing meals and she had significant fear of hypoglycemia events. We discussed the importance of her checking her blood glucose regularly and during sick or stressful days to increase the frequency of blood glucose monitoring. We also discussed the importance of not skipping her Lantus dosing when fasting due to work/life or illness. Rather the patient was encouraged to decrease her dose of Lantus and monitor her blood glucose frequently. 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 At time of discharge, the patient is in stable condition, with adequately controlled blood glucose on Lantus 10 units twice daily with Humalog for sliding scale coverage. Arrangements are being made for the patient to receive home health nursing for disease and medication management and education. She is instructed to follow-up with her primary care provider within 1 week. Physical Exam Vital Signs: Temp Pulse Resp BP Pulse Ox 97.8 F 80 12 123/74 100 05/08/18 08:38 05/08/18 08:38 05/08/18 08:38 05/08/18 08:38 05/08/18 08:38 Intake & Output 05/07/18 05/08/18 05/09/18 06:59 06:59 06:59 Intake Total 2972 Output Total 400 Balance 2572 Weight 54 kg General appearance: PRESENT: no acute distress, cooperative, thin, well- developed, well-nourished Head exam: PRESENT: atraumatic, normocephalic Eye exam: PRESENT: conjunctiva pink, EOMI, PERRLA. ABSENT: scleral icterus Mouth exam: PRESENT: moist, tongue midline Neck exam: ABSENT: carotid bruit, JVD, lymphadenopathy, thyromegaly Respiratory exam: PRESENT: clear to auscultation dannie, symmetrical, unlabored. ABSENT: rales, rhonchi, wheezes Cardiovascular exam: PRESENT: RRR. ABSENT: diastolic murmur, rubs, systolic murmur Pulses: PRESENT: normal dorsalis pedis pul Vascular exam: PRESENT: normal capillary refill GI/Abdominal exam: PRESENT: normal bowel sounds, soft. ABSENT: distended, guarding, mass, organolmegaly, rebound, tenderness Rectal exam: PRESENT: deferred Extremities exam: PRESENT: full ROM. ABSENT: calf tenderness, clubbing, pedal edema Neurological exam: PRESENT: alert, awake, oriented to person, oriented to place , oriented to time, oriented to situation, CN II-XII grossly intact. ABSENT: motor sensory deficit Psychiatric exam: PRESENT: appropriate affect, normal mood. ABSENT: homicidal ideation, suicidal ideation Skin exam: PRESENT: dry, intact, warm. ABSENT: cyanosis, rash Results Laboratory Results: 05/08/18 06:08 05/08/18 06:08 05/07/18 05/07/18 05/08/18 18:02 22:00 02:27 WBC RBC Hgb Hct MCV MCH MCHC RDW Plt Count Seg Neutrophils % Lymphocytes % Monocytes % Eosinophils % Basophils % Absolute Neutrophils Absolute Lymphocytes Absolute Monocytes Absolute Eosinophils Absolute Basophils Sodium 138.7 137.1 143.0 Potassium 4.0 4.3 4.1 Chloride 110 H 111 H 113 H Carbon Dioxide 15 L 15 L 19 L Anion Gap 14 11 11 BUN 15 15 13 Creatinine 0.53 0.49 L 0.49 L Est GFR ( Amer) > 60 > 60 > 60 Est GFR (Non-Af Amer) > 60 > 60 > 60 Glucose 283 H 274 H 115 H Calcium 8.6 8.7 9.0 05/08/18 05/08/18 06:08 06:08 WBC 6.1 RBC 4.32 Hgb 12.8 D Hct 37.6 MCV 87 D MCH 29.7 MCHC 34.1 RDW 13.6 Plt Count 232 Seg Neutrophils % 46.1 Lymphocytes % 43.8 Monocytes % 7.5 Eosinophils % 1.5 Basophils % 1.1 Absolute Neutrophils 2.8 Absolute Lymphocytes 2.7 Absolute Monocytes 0.5 Absolute Eosinophils 0.1 Absolute Basophils 0.1 Sodium 144.1 Potassium 4.0 Chloride 112 H Carbon Dioxide 23 Anion Gap 9 BUN 13 Creatinine 0.54 Est GFR ( Amer) > 60 Est GFR (Non-Af Amer) > 60 Glucose 89 Calcium 9.0 Qualifiers - * PATIENT BEING DISCHARGED WITH ANY OF THE FOLLOWING DIAGNOSIS: No Plan Discharge Plan: Discharge to home with home health nursing for disease and medication management and education. (Insulin-dependent diabetes mellitus)
== END 2018-05-08 10:30 | disposition home or self-care (01) | DRG 639 ==
LOC: ER 02:19 → EH 05:09 → 3W 07:45
PROVIDERS: ADMIT Internal Medicine; ATTEND Internal Medicine
DX: E10.10 Type 1 diabetes mellitus with ketoacidosis without coma (principal); E87.5 Hyperkalemia; D72.829 Elevated white blood cell count, unspecified; Z79.4 Long term (current) use of insulin; Z91.14 Patient's other noncompliance with medication regimen
CPT/HCPCS: 36415; 80048; 80053; 80307; 81001; 82962; 83036; 83690; 83735; 84100; 84703; 85025; 96361; 96374; 99284; J1644; J1815; J2405; J7030